=== PATIENT | female | born 1955 | race Caucasian/White ===

== ENCOUNTER 2019-08-30 05:47 | Emergency (ER) | payer MEDICARE, SELFPAY ==
--- NOTE | ~2019-08-30 | CT_ITS ---
EXAMINATION: CT brain wo con DATE: 08/30/2019 06:39 INDICATION: Head injury post fall TECHNIQUE: Computed tomography (CT) of the head was performed without intravenous contrast. Sagittal and coronal reconstructions were performed. The mA was adjusted according to patient size. Iterative reconstruction technique was employed. The dose-length product was 605.33 mGy-cm. COMPARISON: head CT dated 08/28/2018 FINDINGS: Small right frontal scalp contusion. No fracture. New small amount of subarachnoid hemorrhage along t he anterior right frontal lobe. No acute infarction. Symmetric prominence of the sulci and ventricles consistent with mild age-appropriate diffuse cerebral volume loss. Incidental cavum septum pellucidu m. No mass/mass effect. Mild mucoperiosteal thickening the bilateral ethmoid sinuses. The orbits and mastoid air cells are normal. Intracranial calcified cerebral atherosclerosis is noted. IMPRESSION: 1. Anterior right frontal subarachnoid hemorrhage. Reviewed, dictated and finalized at location A.
[2019-08-30 05:51] VITALS: BP 137/89; PULSE 81; RESP 18; TEMP 36.8; O2SAT 100
--- NOTE | 2019-08-30 06:07 | ED.FALL ---
HPI - Fall General Chief Complaint: Fall Stated Complaint: fall Time Seen by Provider: 08/30/19 06:02 History of Present Illness HPI Narrative: Patient is a 64-year-old female who presents the ER with a head injury. She reports last night she was out getting a walk-in when she tripped over a parking lot parking block. She fell and struck the back of her head. Denies loss of consciousness, she had been drinking alcohol. Denies being on blood thinner. She has no focal neuro deficit at this time. She went home and went to sleep for several hours, fall occurred at 2300. When she woke up she realized how much blood was covering her head and opted to come to the ER to be evaluated further. Unknown last tetanus vaccination. Reports frontal WOLFE and pain over the back of the head. Related Data Home Medications Medication Instructions Recorded Confirmed atorvastatin 08/30/19 metoprolol tartrate 08/30/19 Allergies Allergy/AdvReac Type Severity Reaction Status Date / Time poliomyelitis vaccine, live Allergy Unknown Rash Verified 08/28/18 17:17 oral Review of Systems Review of Systems: All systems reviewed & are unremarkable except as noted in HPI and below Constitutional: Constitutional: Denies chills and Denies fever(s) Eyes: Eyes: Denies change in vision ENT: Denies nasal congestion and Denies sore throat Neurologic: Denies syncope, Reports headache(s), Denies focal weakness and Denies numbness PMFSH Past Medical History Medical History (Updated 08/30/19 @ 07:36 by Wale Thapa MD) Coronary artery disease Hypertension Surgical History Surgical History (Updated 08/30/19 @ 06:23 by Wale Thapa MD) No pertinent past surgical history Social History Social History (Updated 08/30/19 @ 07:06 by Wale Thapa MD) Smoking status: Never smoker Alcohol use details: Regular EtOH Substance use: never Gender identity (if verbalized by the patient): Female Exam Narrative: Exam Narrative: GENERAL: Well-appearing, well-nourished, and in no acute distress. HEAD: Normocephalic, 1.5 cm laceration with hematoma over the left occipital region. EYES: PERRL, EOMI. ENT: Moist mucous membranes, normal external nose/ears. CHEST: Clear to auscultation. No respiratory distress. HEART: Regular rate and rhythm. Normal peripheral pulses. ABDOMEN: Soft, nontender, nondistended EXTREMITIES: Normal range of motion. No edema. SKIN: Warm, dry, no rash. NEURO: Alert and oriented x3. CN II-XII intact. Course Course Emergency Course: Accepted for transfer to [facility] ER by Dr. Reynolds. C-collar will be placed. Pt aware of dx and tx plan. Vital Signs Vital signs: Vital Signs Temperature 98.3 F 08/30/19 05:51 Pulse Rate 81 08/30/19 05:51 Respiratory Rate 18 08/30/19 05:51 Blood Pressure 137/89 08/30/19 05:51 Pulse Oximetry 100 08/30/19 05:51 Temperature 98.3 F 08/30/19 05:51 Pulse Rate 77 08/30/19 08:24 Respiratory Rate 16 08/30/19 08:24 Blood Pressure 123/76 08/30/19 08:24 Pulse Oximetry 98 08/30/19 08:24 Procedures Laceration Laceration 1: Date: 08/30/19 Time: 07:15 Site: scalp Size (cm): 1.5 Description: irregular Depth: simple, single layer Local Anesthetic: none Pre-repair: wound explored and irrigated extensively ====== Skin Level ====== Skin layer closed with: issa Number of sutures: 4 ====== Subcutaneous Layer ====== ====== Muscle Layer ====== ====== Tendon Layer ====== MDM - Fall Imaging Data Radiologist's impression: ITS Impressions Head CT 08/30/19 06:47 IMPRESSION: 1. Anterior right frontal subarachnoid hemorrhage. Critical Care Time Critical Care Time Critical Care Time: Yes Total Critical Care Time: 35 Discharge Plan Discharge Clinical Impression: Subarachnoid hemorrhage, Laceration of scalp Patient Dispositi
[2019-08-30] MEDS: TETANUS,DIPHTHERIA,AC PERTUSSIS ADULT (0.5 ML) BOOSTRIX IM (06:56)
[2019-08-30] MEDS: ACETAMINOPHEN 325 MG TABLET 650 MG PO (06:58)
[2019-08-30 07:07] VITALS: BP 126/83; PULSE 74; RESP 19; O2SAT 100
[2019-08-30 08:24] VITALS: BP 123/76; PULSE 77; RESP 16; O2SAT 98
--- NOTE | 2019-08-30 08:28 | PC.NURSE ---
EMS eta 0640
== END 2019-08-30 09:12 | disposition short-term general hospital (02) ==
PROVIDERS: Emergency Provider Emergency Medicine; PCP Family Medicine
DX: S06.6X0A Traumatic subarachnoid hemorrhage without loss of consciousness, initial encounter (principal); S01.01XA Laceration without foreign body of scalp, initial encounter; I25.10 Atherosclerotic heart disease of native coronary artery without angina pectoris; I10 Essential (primary) hypertension; W22.8XXA Striking against or struck by other objects, initial encounter; Y93.01 Activity, walking, marching and hiking; Z23 Encounter for immunization
CPT/HCPCS: 12001; 70450; 90471; 90715; 99285; A9270; L0140

== ENCOUNTER 2020-03-27 15:48 | Emergency (ER) | payer MEDICARE, SELFPAY ==
--- NOTE | ~2020-03-27 | XR_ITS ---
EXAMINATION: XR wrist RT min 3V EXAM DATE: 03/27/2020 16:05 INDICATION: Initial encounter following injury, with pain of the right wrist. TECHNIQUE: Right wrist frontal, frontal with ulnar deviation, oblique and lateral projections obtain ed and reviewed. There is no prior study for comparison. FINDINGS: Right wrist scapholunate joint space is maintained. There is acute closed posttraumatic fr acture of the right radial distal metaphysis with mild posterior angulation and displacement. Fractur e extends into the distal radial ulnar joint and probably also the radiocarpal joint. There is overly ing soft tissue swelling. IMPRESSION: 1. Acute right radial distal metaphyseal intra-articular fracture. Mild posterior angulation, displa cement. Reviewed, dictated and finalized at location A. T HEADMAN IMPRESSION: 1. Acute right radial distal metaphyseal intra-articular fracture. Mild vice president for philanthropy ior angulation, displacement.
--- NOTE | 2020-03-27 15:58 | ED.GENADULT ---
HPI - General Adult General Chief complaint: Extremity Injury, Upper Stated complaint: FALL/INJURED R WRIST/HAND Time Seen by Provider: 03/27/20 15:59 Source: patient Mode of arrival: ambulatory Limitations: no limitations History of Present Illness HPI narrative: 65-year-old female patient presents to the [facility] with complaints of right wrist pain. Patient states that she tripped over a box in her living room and fell Thursday. Patient states she had outstretched both arms to try and brace her fall and has been feeling pain to the right wrist since then. Patient states she has been taking ibuprofen for her pain. Patient does report some bruising to her lower arm. Denies any numbness or tingling to the fingertips at this time. Related Data Home Medications Medication Instructions Recorded Confirmed atorvastatin 08/30/19 metoprolol tartrate 08/30/19 Allergies Allergy/AdvReac Type Severity Reaction Status Date / Time poliomyelitis vaccine, live Allergy Unknown Rash Verified 08/28/18 17:17 oral Review of Systems Review of Systems: Narrative: CONSTITUTIONAL: Denies fever, chills, or sweats. EYES: Denies visual changes, redness, or discharge. ENT: Denies rhinorrhea, congestion, sore throat, or otalgia. CARDIOVASCULAR: Denies chest pain, palpitations, or edema. RESPIRATORY: Denies cough or dyspnea. GASTROINTESTINAL: Denies abdominal pain, nausea, vomiting, or diarrhea. GENITOURINARY: Denies dysuria or hematuria. SKIN: Denies rash or itching. MUSCULOSKELETAL: Denies back pain, joint pain, or myalgia. Positive right wrist pain NEUROLOGIC: Denies headache, numbness, or weakness. PSYCHIATRIC: Denies anxiety or depression. [facility]LY [facility] Past Medical History Medical History (Updated 03/27/20 @ 16:43 by SUNDAY Harkins) Coronary artery disease Hypercholesteremia Hypertension Marijuana use Multiple fractures of ribs of both sides Postmenopausal Surgical History Surgical History No pertinent past surgical history Social History Social History (Updated 03/27/20 @ 16:00 by SUNDAY Harkins) Smoking status: Never smoker Alcohol intake: current Alcohol use details: Bottle 1/day Substance use: current Substance use type: marijuana Gender identity (if verbalized by the patient): Female Comments At the time of my signature I agree with nursing past medical history, surgical, social, and family history. There is no relevant family history pertinent to the presenting complaint. Exam Narrative: Exam Narrative: GENERAL: Well-appearing, well-nourished, and in no acute distress. HEAD: Normocephalic, atraumatic. EYES: PERRLA and EOMI. ENT: Nares clear, no rhinorrhea or epistaxis. Mucous membranes moist. NECK: Supple. No lymphadenopathy CHEST: Clear to auscultation. No respiratory distress. HEART: Regular rate and rhythm. No murmur heard. Normal peripheral pulses. ABDOMEN: Soft, nontender, nondistended, normal active bowel sounds. EXTREMITIES: The R wrist is with obvious asymmetry and deformity when compared to the L wrist. Patient does have some bruising on the anterior aspect of the forearm, no open wounds, swelling. No overlying erythema or warmth. No bony crepitus or focal area of TTP. No scaphoid fullness or tenderness to direct palpation or axial load. Pain with flex/unlimited extension, pain with ulnar/radial deviation. Motor/sensory function of ulnar, radial, median nerves intact. Ulnar and radial pulses intact. SKIN: Warm, dry, no rash. NEURO: No focal deficits. Alert and oriented x3. Course Reevaluation(s) Reevaluation #1: Reevaluated patient after x-ray resulted. Discussed with her that her x-ray does show that she has a right wrist fracture. Discussed with patient that we are going to need to refer her to the orthopedic surgeon on-call today who is Dr. Sue for further evaluation and treatment. Attempted to call his office today h
[2020-03-27 16:01] VITALS: BP 126/77; PULSE 78; RESP 16; TEMP 35.9; O2SAT 98
--- NOTE | 2020-03-27 17:12 | PC.NURSE ---
Volar OCL applied per instructions. Rings removed from right hand and place in patients left pant pocket. Sling applied.
== END 2020-03-27 17:15 | disposition home or self-care (01) ==
PROVIDERS: Emergency Provider Nurse Practitioner Family; PCP Family Medicine
DX: S52.501A Unspecified fracture of the lower end of right radius, initial encounter for closed fracture (principal); W18.09XA Striking against other object with subsequent fall, initial encounter; I25.10 Atherosclerotic heart disease of native coronary artery without angina pectoris; E78.00 Pure hypercholesterolemia, unspecified; I10 Essential (primary) hypertension
CPT/HCPCS: 29125; 73110; 99214; A4565; G0463

== ENCOUNTER 2022-06-08 00:10 | Inpatient (IN) | payer MEDICARE, SELFPAY ==
[2022-06-08] VITALS (8 sets, daily range): BP systolic 112–136; BP diastolic 69–93; PULSE 66–94; RESP 11–16; TEMP 36.9–37.2; O2SAT 97–100; BMI 14.8
--- NOTE | ~2022-06-08 | CT_ITS ---
EXAMINATION: CT brain wo con DATE: 06/08/2022 00:54 INDICATION: Patient found down. EtOH. TECHNIQUE: Computed tomography (CT) of the head was performed without intravenous contrast. The dose- length product was 605.33 mGy-cm. Automated exposure control and iterative reconstruction technique w ere employed. COMPARISON: CT dated 08/30/2019 FINDINGS: Generalized atrophy. There are scattered mild periventricular and subcortical white matter changes, most likely related to small vessel ischemic disease (microangiopathy). There is intracrania l atherosclerosis. No ventriculomegaly or midline shift. Paranasal sinuses and mastoids are pneumatiz ed. No depressed skull fractures. IMPRESSION: 1. No acute intracranial abnormality. Reviewed, dictated and finalized at location A. M CONDITIONER OPERATOR
--- NOTE | ~2022-06-08 | CT_ITS ---
EXAMINATION: CT cervical spine wo con DATE: 06/08/2022 00:55 INDICATION: Patient found down. EtOH TECHNIQUE: Computed tomography (CT) of the cervical spine was performed without intravenous contrast. The dose-length product was 90 mGy-cm. Automated exposure control and iterative reconstruction techn ique were employed. COMPARISON: None FINDINGS: Craniovertebral junction is normal. There is disc narrowing at C5-6 and C6-7. There is dege nerative anterolisthesis at C4-5 and retrolisthesis at C5-6. There is moderate multilevel uncinate an d facet hypertrophy. Mild levocurvature of the cervical spine. Odontoid process is normal. No evidenc e for perched facet. Lung apices are normal. IMPRESSION: 1. No acute abnormality of the cervical spine. 2: Moderate cervical spondylosis. Reviewed, dictated and finalized at location A. OLOGY INTERVENTIONAL PHYSICIAN
--- NOTE | 2022-06-08 00:18 | ECG_ITS ---
Measurements Intervals [place] Rate: 80 P: 74 WV: 133 QRS: 47 QRSD: 81 T: 63 QT: 388 QTc: 450 Interpretive Statements SINUS RHYTHM BASELINE ARTIFACT- I, II, III, AVR, AVL, AVF, V1-V6 NORMAL ECG NO PREVIOUS ECG AVAILABLE FOR COMPARISON Electronically Signed On 06-08-2022 7:42:19 DRIVING INSTRUCTOR by Ashwin Woodruff D.O.
--- NOTE | 2022-06-08 00:19 | ED.GENADULT ---
HPI - General Adult General Chief complaint: Altered Mental Status Stated complaint: altered loc Time Seen by Provider: 06/08/22 00:17 History of Present Illness HPI narrative: This is a 67-year-old female with history of chronic alcohol use presenting ED after being found down in the bathroom of a bar. Bar called EMS. The patient is unable to answer questions appropriately. She smells of alcohol and urine. Patient cannot provide any meaningful information to get her workup. No evidence of trauma. Related Data Home Medications Medication Instructions Recorded Confirmed atorvastatin 20 mg tablet 08/30/19 05/17/20 metoprolol tartrate 25 mg tablet 08/30/19 05/17/20 Allergies Allergy/AdvReac Type Severity Reaction Status Date / Time poliomyelitis vaccine, live Allergy Unknown Rash Verified 08/28/18 17:17 oral PMFSH Past Medical History Medical History BMI less than 19,adult Coronary artery disease Hypercholesteremia Hypertension Marijuana use Multiple fractures of ribs of both sides Postmenopausal Surgical History Surgical History No pertinent past surgical history Family History Family History Other Cancer Heart disease Hypertension Social History Social History Smoking status: Never smoker Alcohol intake: current Alcohol use details: Bottle 1/day Substance use: current Substance use type: marijuana Gender identity (if verbalized by the patient): Female Exam Narrative: APPEARANCE: patient is emaciated, she is malodorous and smells of alcohol urine. She is A&O x1 Head: atraumatic. EYES: EOMI, no nystagmus NOSE: Atraumatic NECK: Trachea midline RESPIRATORY: No increased rate of breathing CARDIOVASCULAR: RRR, no peripheral edema ABDOMINAL: Non-distended soft tender no guarding or rebound MUSCULOSKELETAl: No obvious deformities, head to toe trauma exam did not reveal any areas of tenderness, pain on active passive range of motion of any extremity. NEURO: Alert. Cranial nerves 2-12 grossly intact. Patient is moving 4 4 extremities. Patient is alert but grossly misconstrued ring my commands. When I asked her to touch her nose then touch my finger she touches her nose and then a different part of her face. When I asked her to do heel to gaines and showed her what to do she brought her gaines up to her hand and ran her hand along her gaines. extraocular eye movements are intact with no cranial nerve policies or nystagmus. SKIN:: Warm, dry. Normal color PSYCHIATRIC: Normal affect Course Vital Signs Vital signs: Vital Signs Pulse Rate 88 06/08/22 00:34 Respiratory Rate 11 L 06/08/22 00:34 Blood Pressure 136/93 H 06/08/22 00:34 Pulse Oximetry 100 06/08/22 00:34 Oxygen Delivery Room Air 06/08/22 00:34 Pulse Rate 88 06/08/22 00:34 Respiratory Rate 11 L 06/08/22 00:34 Blood Pressure 136/93 H 06/08/22 00:34 Pulse Oximetry 100 06/08/22 00:34 Oxygen Delivery Room Air 06/08/22 00:34 Medical Decision Making MDM Narrative Medical decision making narrative: -Presentation: 67-year-old female found down presenting with confusion,smells of alcohol and urine. -DDX includes but is not limited to: alcohol intoxication, acute intracranial hemorrhage, urinary tract infection, korsakoff/wernick encephalopathy -Co-morbidities complicating care: chronic alcohol use -Social determinants of health: patient states she lives in house but cannot tell me if it is hers are a snf. -External Chart Review: None -Hx from independent Sources: EMS -Discussion of Management/Consultants: none -Independent interpretation of studies: CT head was negative for acute intracranial injury. CT C-spine was negative for acute fractu
[2022-06-08 00:44] LABS: Appearance Urine Clear (Clear); Bilirubin Urine 1+ (Negative); Blood Urine Trace-intact (Negative); Color Urine Yellow (Yellow); Glucose Urine UA Negative (Negative); Ketones Urine Trace mg/dL (Negative); Leukocyte Esterase Ur Negative LEU/UL (Negative); Nitrate Urine Negative (Negative); Protein Urine 1+ mg/dL (Negative); Specific Grav Ur 1.025 (1.001-1.035); pH Urine 5.5 (5.0-9.0)
[2022-06-08 00:53] LABS: Mucus Urine Few /lpf; RBC Urine 0-2 /hpf (0-2); Squamous Epithelial Cell Urine Rare /hpf (Few); WBC Urine 0-3 /hpf
[2022-06-08 00:57] LABS: Add Urine Microscopic? YES
[2022-06-08 00:58] LABS: Alanine Aminotransferase 34 U/L (6-35); Albumin Level 4.2 g/dL (3.5-5.1); Alkaline Phosphatase 47 U/L (38-126); Anion Gap 12 mmol/L (8-16); Aspartate Amino Transferase 87 U/L (14-36); Bilirubin,Total 0.6 mg/dL (0.2-1.3); Blood Urea Nitrogen 24 mg/dL (7-17); Calcium 9.4 mg/dL (8.4-10.2); Carbon Dioxide 21 mmol/L (22-30); Chloride 101 mmol/L (98-107); Estimated Glomerular Filt Rate > 60; Glucose 92 mg/dL (65-110); Lipase 218 U/L (23-300); Magnesium 1.9 mg/dL (1.6-2.3); Sodium 134 mmol/L (137-145)
[2022-06-08] MEDS: THIAMINE HCL INJ 100 MG, FOLIC ACID INJ 1 MG, MULTIVITAMINS-12 INJ VIAL 1 5 ML, MULTIVI... IV CONT (00:58)
[2022-06-08 01:16] LABS: Ethanol 52 mg/dL (<10)
[2022-06-08 01:17] LABS: Basophils Absolute Auto 0.1 K/mm3 (0.0-0.1); Basophils Percent Auto 0.8 % (0.2-1.2); Eosinophils Absolute Auto 0.1 K/mm3 (0-0.3); Eosinophils Percent Auto 0.8 % (0-4.4); Immature Granulocyte Absolute 0.03 K/mm3 (0.00-0.031); Immature Granulocyte Percent A 0.5 % (0-0.5); Lymphocytes Absolute Auto 1.87 K/mm3 (0.9-3.2); Lymphocytes Percent Auto 30.4 % (18.3-44.2); Mean Corpuscular HGB Conc 32.4 g/dl (32-36); Mean Corpuscular Hemoglobin 32.4 pg (26-34); Mean Platelet Volume 10.4 fl (7.4-10.4); Monocytes Percent Auto 15.9 % (2.6-8.5); Neutrophils Absolute Auto 3.2 K/mm3 (1.3-6.7); Neutrophils Percent Auto 51.6 % (45.5-73.1); Platelet Count Result 273 k/mm3 (150-375); Red Cell Distribution Width 11.5 % (11.5-14.5); White Blood Count 6.2 K/mm3 (4.5-10.0)
[2022-06-08 02:00] LABS: INR 1.1
[2022-06-08 02:01] LABS: Partial Thromboplastin Time 25.5 SECONDS (22.3-36.8)
[2022-06-08 02:23] LABS: Amphetamine Screen Urine Negative (Negative); Barbiturate Screen Urine Negative (Negative); Benzodiazepines Screen Urine Negative (Negative); Cannabinoid Screen Urine Negative (Negative); Cocaine Screen Urine Negative (Negative); Methadone Screen Urine Negative (Negative); Opiate Screen Urine Negative (Negative); Phencyclidine Screen Urine Negative (Negative)
--- NOTE | 2022-06-08 04:31 | PM.IMHP ---
H&P: HPI History of Present Illness Date/Time: 06/08/22 04:31 Chief Complaint: Altered mental status Narrative: This is a 67-year-old female with past medical history significant for alcohol dependence, patient was found down at a bathroom of a local bar EMS was called and patient was brought to the emergency room. At the time of my visit patient has [place] collar on unable to give any history she is able to make eye contact and say simple answers likely yes or no. Preliminary workup was significant for a negative urine tox for drug screening, cervical spine CT did not show acute fractures, serology panel for influenza type A type B COVID and RSV are still pending. Patient is been placed in observation for further evaluation management and treatment. Review of Systems Review of Systems: ROS unobtainable: Yes unobtainable due to medical condition ([place] collar on) PMFSH Past Medical History Medical History BMI less than 19,adult Coronary artery disease Hypercholesteremia Hypertension Marijuana use Multiple fractures of ribs of both sides Postmenopausal Surgical History Surgical History No pertinent past surgical history Family History Family History Other Cancer Heart disease Hypertension Social History Social History Smoking status: Never smoker Alcohol intake: current Alcohol use details: Bottle 1/day Substance use: current Substance use type: marijuana Gender identity (if verbalized by the patient): Female Meds Home Medications and Allergies Home Medications Medication Instructions Recorded Confirmed Type atorvastatin 20 mg tablet 08/30/19 05/17/20 History metoprolol tartrate 25 mg tablet 08/30/19 05/17/20 History Allergies Allergy/AdvReac Type Severity Reaction Status Date / Time poliomyelitis vaccine, live Allergy Unknown Rash Verified 08/28/18 17:17 oral Vital Signs Vital Signs - 24 hr 06/08/22 00:34 06/08/22 03:15 06/08/22 03:17 Pulse Rate 88 77 78 Respiratory Rate 11 L 16 16 Blood Pressure 136/93 H 127/75 116/71 Pulse Oximetry 100 97 98 Oxygen Delivery Room Air Exam Narrative: Patient is laying in a stretcher Const: General: comfortable, no acute distress, well developed, alert, awake and average body habitus Nutritional Appearance: underweight Orientation/consciousness: oriented to person HENMT: Head: normal to inspection, normocephalic and atraumatic Ears: hearing grossly normal bilaterally Face/Nose/Sinus: normal facial exam Face and sinus: normal facial exam Eyes: General: appearance normal, both eyes and all related structures Pupils: Equal, round and reactive pupils present EOM: EOMs intact bilaterally Neck: Neck: full ROM, no lymphadenopathy and no JVD Thyroid: thyroid normal Lymphatic: no lymphadenopathy noted Resp: Effort & Inspection: normal respiratory effort and able to speak in complete sentences Auscultation: clear to auscultation bilaterally Cardio: Jugular venous distension: no JVD Rate: regular rate Rhythm: regular rhythm Heart sounds: S1 normal heart sound present and S2 normal heart sound present GI: Inspection: normal to inspection GI Palp: Yes Soft to palpation and Yes No hepatosplenomegaly present : General: Yes deferred Skin: Rashes: no rashes Wounds: no wounds Neuro: General: patient oriented x3 and CN's II-XI intact bilaterally Cranial nerves: Yes CN's II-XII intact bilaterally and Yes Equal, round and reactive pupils present Cognition (Neuro): normal cognition Speech: normal speech Gait exam (Neuro): Unable to assess gait Motor exam (neuro): 5/5 motor strength present throughout Extrem: General: normal to inspection, full ROM, no joint enlargement and no pedal edema Other: Excoriation
[2022-06-08 05:13] LABS: Influenza A QL RT-PCR Negative (Negative); Influenza B QL RT-PCR Negative (Negative); RSV RNA, RT-PCR Negative (Negative); SARS-CoV-2 RNA PCR Negative
[2022-06-08 07:59] LABS: Glucose Point of Care 121 mg/dl (65-105)
[2022-06-08] MEDS: THIAMINE HCL 200 MG/2 ML VIAL 100 MG IV PUSH (08:50)
[2022-06-08] MEDS: LACTATED RINGERS 1,000 ML 125 ML IV CONT ×3 (12:55→22:36)
--- NOTE | 2022-06-08 19:53 | PC.NURSE ---
Dr. Cline made aware of patient scoring 12 on CIWA protocol with no prn or scheduled medications. Sitter remains at bedside at this time. Awaiting further orders.
[2022-06-08] MEDS: chlordiazePOXIDE (*CRX) 25 MG CAPSULE 50 MG PO (20:33)
[2022-06-08] MEDS: ONDANSETRON INJ 4 MG/2 ML VIAL IV PUSH (20:33)
[2022-06-08] MEDS: LORazepam INJ (*CRX) 2 MG/ML VIAL IV PUSH (22:36)
[2022-06-09] VITALS (7 sets, daily range): BP systolic 118–139; BP diastolic 66–92; PULSE 56–85; RESP 16–18; TEMP 36.6–37; O2SAT 98–100; BMI 14.8
[2022-06-09 01:11] LABS: Glucose Point of Care 87 mg/dl (65-105)
[2022-06-09] MEDS: LACTATED RINGERS 1,000 ML 125 ML IV CONT ×3 (04:52→23:00)
[2022-06-09 05:47] LABS: Glucose Point of Care 84 mg/dl (65-105)
[2022-06-09] MEDS: THIAMINE HCL 200 MG/2 ML VIAL 100 MG IV PUSH (08:38)
--- NOTE | 2022-06-09 11:15 | PM.IMPN ---
Progress Note: A&P Assessment and Plan (1) Altered mental status: Code(s): R41.82 - Altered mental status, unspecified Status: Acute Assessment and Plan: Admit to regular medical floor Patient is now awake and alert [place] collar may come off were and official reading of cervical spine is available Chemistry panel reviewed CBC reviewed Supportive care (2) Alcohol dependence: Code(s): F10.20 - Alcohol dependence, uncomplicated Status: Acute Assessment and Plan: Patient is receiving banana bag CIWA protocol as needed Subjective Date/time seen: 06/09/22 11:15 no new complaints Exam Narrative: Patient is laying in a stretcher Const: General: comfortable, no acute distress, well developed, alert, awake, average body habitus and underweight Nutritional Appearance: average body habitus and underweight Orientation/consciousness: oriented to person and patient oriented x3 HENMT: Head: normal to inspection, normocephalic and atraumatic Ears: hearing grossly normal bilaterally Face/Nose/Sinus: normal facial exam Face and sinus: normal facial exam Eyes: General: appearance normal, both eyes and all related structures Pupils: Equal, round and reactive pupils present EOM: EOMs intact bilaterally Neck: Neck: full ROM, no lymphadenopathy and no JVD Thyroid: thyroid normal Lymphatic: no lymphadenopathy noted Resp: Effort & Inspection: normal respiratory effort and able to speak in complete sentences Auscultation: clear to auscultation bilaterally Cardio: Jugular venous distension: no JVD Rate: regular rate Rhythm: regular rhythm Heart sounds: S1 normal heart sound present and S2 normal heart sound present GI: Inspection: normal to inspection : General: Yes deferred Skin: Rashes: no rashes Wounds: no wounds Neuro: General: oriented to person, patient oriented x3, CN's II-XI intact bilaterally and Unable to assess gait Cranial nerves: Yes CN's II-XII intact bilaterally and Yes Equal, round and reactive pupils present Cognition (Neuro): normal cognition Speech: normal speech Gait exam (Neuro): Unable to assess gait Motor exam (neuro): 5/5 motor strength present throughout Extrem: General: normal to inspection, full ROM, no joint enlargement and no pedal edema Other: Excoriations present in bilateral lower extremities Objective Data Vital Signs Vital Signs: Vital Signs - 24 hr 06/08/22 14:10 06/08/22 22:00 06/08/22 20:00 Temperature 98.4 F 99.0 F Pulse Rate 82 66 Pulse Rate [Left Radial] 66 Respiratory Rate 16 16 Blood Pressure 120/80 124/84 Pulse Oximetry 100 100 Oxygen Delivery 06/08/22 20:00 06/09/22 00:00 06/09/22 05:31 Temperature 97.9 F Pulse Rate 56 L Pulse Rate [Left Radial] 72 Respiratory Rate 16 Blood Pressure 124/84 139/92 H Pulse Oximetry 99 Oxygen Delivery Room Air Intake/Output Intake/Output: Intake & Output 06/06/22 06/07/22 06/08/22 06/09/22 23:59 23:59 23:59 23:59 Intake Total 2240 1000 Balance 2240 1000 Meds/Results Medications: Active Medications Generic Name Dose Route Start Last Admin Trade Name Freq PRN Reason Stop Dose Admin Chlordiazepoxide HCl 50 mg 06/08/22 19:53 06/08/22 20:33 Chlordiazepoxide (*Crx) 25 Mg Capsule PO 50 mg Q6H PRN Administration Withdrawal Lactated Ringer's 1,000 mls @ 125 mls/hr 06/08/22 02:30 06/09/22 04:52 Lr - Lactated Ringers Iv IV CONT 125 mls/hr .Q8H CURTIS Administration Lorazepam 2 mg 06/08/22 19:53 06/08/22 22:36 Lorazepam Inj (*Crx) 2 Mg/Ml Vial IV PUSH 2 mg Q4H PRN Administration Withdrawal Ondansetron HCl 4 mg 06/08/22 19:53 06/08/22 20:33 Ondansetron Inj 4 Mg/2 Ml Vial IV PUSH 4 mg Q6H PRN Administration Nausea And Vomiting Thiamine HCl 100 mg 06/08/22 09:00 06/09/22 08:38 Thiamine Hcl 200 Mg/2 Ml Vial IV PUSH 100 mg QAM CURTIS Administration Radiology Results: ITS Impressions
[2022-06-09 11:25] LABS: Glucose Point of Care 66 mg/dl (65-105)
[2022-06-09 18:22] LABS: Glucose Point of Care 101 mg/dl (65-105)
[2022-06-10 00:20] LABS: Glucose Point of Care 121 mg/dl (65-105)
[2022-06-10 05:15] VITALS: BP 115/62; PULSE 63; RESP 16; TEMP 36.7; O2SAT 99
[2022-06-10 05:40] LABS: Glucose Point of Care 83 mg/dl (65-105)
[2022-06-10] MEDS: LACTATED RINGERS 1,000 ML 125 ML IV CONT ×3 (10:00→21:30)
[2022-06-10] MEDS: THIAMINE HCL 200 MG/2 ML VIAL 100 MG IV PUSH (10:52)
[2022-06-10 10:53] VITALS: O2SAT 97
--- NOTE | 2022-06-10 11:04 | PM.IMPN ---
Progress Note: A&P Assessment and Plan (1) Altered mental status: Code(s): R41.82 - Altered mental status, unspecified Status: Acute Assessment and Plan: Patient is much more alert today. Feeling better overall. No withdrawal symptoms. PTOT evaluation. Question placement or discharged home. (2) Alcohol dependence: Code(s): F10.20 - Alcohol dependence, uncomplicated Status: Acute Assessment and Plan: Patient is receiving banana bag CIWA protocol as needed Subjective Date/time seen: 06/10/22 11:04 Patient had a fall yesterday. No injuries. Awaiting PT and OT evaluation today. Otherwise with her alcohol withdrawal she is doing much better. Exam Narrative: Patient is laying in a stretcher Const: General: comfortable, no acute distress, well developed, alert, awake, average body habitus and underweight Nutritional Appearance: average body habitus and underweight Orientation/consciousness: oriented to person and patient oriented x3 HENMT: Head: normal to inspection, normocephalic and atraumatic Ears: hearing grossly normal bilaterally Face/Nose/Sinus: normal facial exam Face and sinus: normal facial exam Eyes: General: appearance normal, both eyes and all related structures Pupils: Equal, round and reactive pupils present EOM: EOMs intact bilaterally Neck: Neck: full ROM, no lymphadenopathy and no JVD Thyroid: thyroid normal Lymphatic: no lymphadenopathy noted Resp: Effort & Inspection: normal respiratory effort and able to speak in complete sentences Auscultation: clear to auscultation bilaterally Cardio: Jugular venous distension: no JVD Rate: regular rate Rhythm: regular rhythm Heart sounds: S1 normal heart sound present and S2 normal heart sound present GI: Inspection: normal to inspection : General: Yes deferred Skin: Rashes: no rashes Wounds: no wounds Neuro: General: oriented to person, patient oriented x3, CN's II-XI intact bilaterally and Unable to assess gait Cranial nerves: Yes CN's II-XII intact bilaterally and Yes Equal, round and reactive pupils present Cognition (Neuro): normal cognition Speech: normal speech Gait exam (Neuro): Unable to assess gait Motor exam (neuro): 5/5 motor strength present throughout Extrem: General: normal to inspection, full ROM, no joint enlargement and no pedal edema Other: Excoriations present in bilateral lower extremities Objective Data Vital Signs Vital Signs: Vital Signs - 24 hr 06/09/22 11:10 06/09/22 11:10 06/09/22 11:59 Temperature Pulse Rate 77 Pulse Rate [Left Radial] 77 Respiratory Rate 18 Blood Pressure 127/66 127/66 Pulse Oximetry 100 Oxygen Delivery Room Air 06/09/22 14:00 06/09/22 22:26 06/09/22 21:20 Temperature 97.8 F 98.6 F Pulse Rate 59 L 85 Pulse Rate [Left Radial] 77 Respiratory Rate 18 16 Blood Pressure 118/76 126/81 126/81 Pulse Oximetry 100 98 Oxygen Delivery 06/09/22 21:20 06/10/22 05:15 06/10/22 10:53 Temperature 98.1 F Pulse Rate 63 Pulse Rate [Left Radial] Respiratory Rate 16 Blood Pressure 115/62 Pulse Oximetry 99 97 Oxygen Delivery Room Air Room Air Intake/Output Intake/Output: Intake & Output 06/07/22 06/08/22 06/09/22 06/10/22 23:59 23:59 23:59 23:59 Intake Total 2240 3460 1000 Balance 2240 3460 1000 Meds/Results Medications: Active Medications Generic Name Dose Route Start Last Admin Trade Name Freq PRN Reason Stop Dose Admin Chlordiazepoxide HCl 50 mg 06/08/22 19:53 06/08/22 20:33 Chlordiazepoxide (*Crx) 25 Mg Capsule PO 50 mg Q6H PRN Administration Withdrawal Lactated Ringer's 1,000 mls @ 125 mls/hr 06/08/22 02:30 06/10/22 10:00 Lr - Lactated Ringers Iv IV CONT 125 mls/hr .Q8H CURTIS Administration Lorazepam 2 mg 06/08/22 19:53 06/08/22 22:36 Lorazepam Inj (*Crx) 2 Mg/Ml Vial IV PUSH 2 mg Q4H PRN Administration Withdrawal Ondansetron HCl 4 mg 06/08/22 1
[2022-06-10 11:26] LABS: Glucose Point of Care 93 mg/dl (65-105)
[2022-06-10 14:00] VITALS: BP 143/82; PULSE 68; RESP 16; TEMP 36.6; O2SAT 99
[2022-06-10] MEDS: chlordiazePOXIDE (*CRX) 25 MG CAPSULE 50 MG PO (16:28)
[2022-06-10 17:43] LABS: Glucose Point of Care 107 mg/dl (65-105)
[2022-06-10 20:32] VITALS: PULSE 68
[2022-06-10 21:23] VITALS: BP 154/92; PULSE 63; RESP 16; TEMP 36.4; O2SAT 100
[2022-06-11] VITALS: PULSE 68
[2022-06-11 01:02] LABS: Glucose Point of Care 104 mg/dl (65-105)
[2022-06-11 04:00] VITALS: PULSE 70
[2022-06-11] MEDS: LACTATED RINGERS 1,000 ML 125 ML IV CONT ×2 (04:12→14:55)
[2022-06-11 05:49] VITALS: BP 143/84; PULSE 94; RESP 16; TEMP 37.1; O2SAT 99
[2022-06-11 06:19] LABS: Glucose Point of Care 105 mg/dl (65-105)
[2022-06-11 08:00] VITALS: PULSE 69
[2022-06-11 08:51] LABS: Glucose Point of Care 76 mg/dl (65-105)
[2022-06-11] MEDS: THIAMINE HCL 200 MG/2 ML VIAL 100 MG IV PUSH (11:02)
[2022-06-11 11:23] LABS: Glucose Point of Care 107 mg/dl (65-105)
--- NOTE | 2022-06-11 14:45 | PM.DS ---
DS: Admitting Diagnosis Discharge Date 06/11/2022 Admitting Diagnosis acute altered mental status DS: Discharge Diagnosis Discharge Diagnosis (1) Altered mental status: Qualifiers: Altered mental status type: unspecified Qualified Code(s): R41.82 - Altered mental status, unspecified Code(s): R41.82 - Altered mental status, unspecified Status: Acute Assessment and Plan: Patient is much more alert today. Feeling better overall. No withdrawal symptoms. PTOT evaluation. Question placement or discharged home. (2) Alcohol dependence: Code(s): F10.20 - Alcohol dependence, uncomplicated Status: Acute Assessment and Plan: Patient is receiving banana bag CIWA protocol as needed DS: Summary Hospital Course Reason for hospitalization: Chief Complaint: Altered mental status Narrative: This is a 67-year-old female with past medical history significant for alcohol dependence, patient was found down at a bathroom of a local bar EMS was called and patient was brought to the emergency room.? At the time of my visit patient has [place] collar on unable to give any history she is able to make eye contact and say simple answers likely yes or no.? Preliminary workup was significant for a negative urine tox for drug screening, cervical spine CT did not show acute fractures, serology panel for influenza type A type B COVID and RSV are still pending.? Patient is been placed in observation for further evaluation management and treatment. Hospital Course: today patient is more clinically stable her CIWA protocol extending down, will discharge the patient today with instruction to avoid alcohol Time Spent with Patient Time attestation: Total time spent providing and/or coordinating discharge services: Exam Narrative: appears chronically ill and under nourished Patient is comfortable, NAD HEENT: eyes are clear and none icteric LUNGS: normal respiratory effort ABD: not distended Lower extremities: no edema SKIN: nonjaundiced Neuro: grossly intact. DS: Data Data Completed and Pending Labs on day of discharge: Labs from last 24 hours 06/11/22 06/11/22 06/11/22 11:19 08:03 06:09 POC Capillary Glucose 107 H 76 105 06/11/22 06/10/22 00:58 17:40 POC Capillary Glucose 104 107 H Discharge Plan Discharge Attending physician on discharge: Meseret Almaraz Consulting providers: Dixon Serra ; Espinoza Nick ; Ashwin Woodruff Discharging Clinician: Meseret Almaraz Patient Disposition: Home, Self-Care Activity: as tolerated Diet: heart healthy Discharge Instructions: Patient is instructed to avoid alcohol, and follow up with her primary care provider as soon as possible, patient is instructed if any symptoms get worsen to go to nearest ER. Patient Instructions: Antibiotic Form, Alcohol Withdrawal (DC), Encephalopathy (GEN) Stand Alone Forms: General Discharge Information Follow-up/Referrals: Antelmo,Yessi Gomez MD [Primary Care Provider] - Discharge Medications: New prenat.vits,brandy,[id number] Tablet 1 tablet PO DAILY Qty: 90 0RF Continued atorvastatin 20 mg tablet 20 mg PO DAILY metoprolol tartrate 25 mg tablet 12.5 mg PO BID Date of admission: 06/08/22 02:26 Primary Care Provider: EnrriqueYessi Admitting Provider: Keya Cline V. Attending physician on admission: Meseret Almaraz Condition: Stable
== END 2022-06-11 15:55 | disposition home or self-care (01) | DRG 897 ==
LOC: ANHED 02:22 → ANH3MEDSUR 03:01
PROVIDERS: Admitting Provider Internal Medicine; Emergency Provider Emergency Medicine; PCP Family Medicine; Visit Provider Family Medicine
DX: F10.229 Alcohol dependence with intoxication, unspecified (principal); Z68.1 Body mass index [BMI] 19.9 or less, adult; R64 Cachexia; Y90.2 Blood alcohol level of 40-59 mg/100 ml; E78.00 Pure hypercholesterolemia, unspecified; F12.90 Cannabis use, unspecified, uncomplicated; I10 Essential (primary) hypertension; I25.10 Atherosclerotic heart disease of native coronary artery without angina pectoris; R41.82 Altered mental status, unspecified; R63.6 Underweight; Z20.822 Contact with and (suspected) exposure to COVID-19
CPT/HCPCS: 36415; 51701; 70450; 72125; 80053; 80307; 81001; 82948; 83690; 83735; 85025; 85610; 85730; 87637; 93005; 96374; 97161; 97165; 99285; A9270; J2060; J2405; J3411; J3475; J7120; J7121

== ENCOUNTER 2022-06-14 20:50 | Observation (INO) | payer MEDICARE, SELFPAY ==
--- NOTE | ~2022-06-14 | CT_ITS ---
EXAMINATION: CT brain wo con INDICATION: Headache COMPARISON: 06/08/2022 TECHNIQUE: Standard unenhanced head CT. The dose-length product (DLP) was 605.33 mGy-cm. The mA was a djusted according to patient size. Iterative reconstruction technique was employed. FINDINGS: There is no acute intraparenchymal hemorrhage. No evidence of mass lesion. No evidence of a cute infarction. There is moderate periventricular and subcortical hypodensity probably related to sm all vessel ischemic disease. There is moderate prominence of the sulci and ventricles related to cere bral atrophy. Intracranial calcified cerebral atherosclerosis is noted. There are no extra-axial ciara ections. There is no mass effect or midline shift. The orbits and soft tissues are unremarkable. The visualized sinuses and mastoid air cells are well aerated. IMPRESSION: 1. No acute intracranial abnormality. 2. Age related findings. Reviewed, dictated and finalized at location A. MANAGER
--- NOTE | 2022-06-14 20:57 | ECG_ITS ---
Measurements Intervals [place] Rate: 80 P: 78 MA: 136 QRS: 66 QRSD: 79 T: 75 QT: 386 QTc: 448 Interpretive Statements SINUS RHYTHM POSSIBLE LEFT ATRIAL ENLARGEMENT [-0.1mV P WAVE IN V1/V2] ABNORMAL ECG COMPARED TO ECG 06/08/2022 01:23:05 NO SIGNIFICANT CHANGES Electronically Signed On 06-15-2022 11:29:21 SALES ORDER CLERK by Misael Vital M.D.
[2022-06-14 21:00] VITALS: BP 132/76; PULSE 92; RESP 18; TEMP 36.6; O2SAT 97
--- NOTE | 2022-06-14 21:11 | ED.GENADULT ---
HPI - General Adult General Chief complaint: Unspecified Stated complaint: ?failure to thrive Time Seen by Provider: 06/14/22 20:51 History of Present Illness HPI narrative: 67-year-old female presenting to the emergency department for evaluation for confusion and failure to thrive. Patient was recently admitted for alcoholic intoxication and encephalopathy. Patient was discharged on 06/11. Today patient was found wandering around the neighborhood looking for water for her cats. Police escorted the patient back to her house and found that the patient had no heat and no running water. EMS was called and the patient was brought to the emergency department for evaluation. Patient states that she did start drinking immediately after discharge from the hospital but had no alcohol today. Patient reports that she drinks wine. Patient denies any other pain or complaints. Patient does have a history of alcohol dependence Related Data Home Medications Medication Instructions Recorded Confirmed atorvastatin 20 mg tablet 20 mg PO DAILY 08/30/19 06/15/22 metoprolol tartrate 25 mg tablet 12.5 mg PO BID 08/30/19 06/15/22 Allergies Allergy/AdvReac Type Severity Reaction Status Date / Time poliomyelitis vaccine, live Allergy Unknown Rash Verified 08/28/18 17:17 oral Review of Systems Review of Systems: CONSTITUTIONAL: Denies fever, chills, or sweats. EYES: Denies visual changes, redness, or discharge. ENT: Denies rhinorrhea, congestion, sore throat, or otalgia. CARDIOVASCULAR: Denies chest pain, palpitations, or edema. RESPIRATORY: Denies cough or dyspnea. GASTROINTESTINAL: Denies abdominal pain, nausea, vomiting, or diarrhea. GENITOURINARY: Denies dysuria or hematuria. SKIN: Denies rash or itching. MUSCULOSKELETAL: Denies back pain, joint pain, or myalgia. NEUROLOGIC: Denies headache, numbness, or weakness. [facility] Past Medical History Medical History BMI less than 19,adult Coronary artery disease Hypercholesteremia Hypertension Marijuana use Multiple fractures of ribs of both sides Postmenopausal Surgical History Surgical History No pertinent past surgical history Family History Family History Unknown Cancer Unknown Cerebrovascular accident Unknown Heart disease Unknown Hypertension Social History Social History Smoking status: Never smoker Second hand tobacco smoke exposure: No Alcohol intake: current Drinks per week: 5 Alcohol use details: Bottle 1/day Substance use: current Substance use type: marijuana Last use: COUPLE DAYS AGO Lack of Transportation: YES Lack of Food: Sometimes True Current Housing: I Have Housing Concerned About Future Housing: YES Difficulty Paying Gas/Electric Bills: YES Difficulty Paying for Meds: YES Currently Unemployed: No Education: Don't Know Difficulty w/ Childcare or Family Care: No Gender identity (if verbalized by the patient): Female Spiritual care concerns: No Exam Narrative: APPEARANCE: Cachectic and disheveled HEAD: normocephalic, atraumatic. EYES: PERRLA/EOMI, conjunctivae clear. NOSE: Normal no drainage NECK: Supple. No adenopathy, no masses. RESPIRATORY: Airway patent, respirations nonlabored. Clear to auscultation bilaterally, no rales, rhonchi, wheezing. CARDIOVASCULAR: Regular rate and rhythm without murmurs rubs or gallops. ABDOMINAL: Soft, nontender, nondistended, normal bowel sounds MUSCULOSKELETAL: Moves all extremities. Strength/ROM intact, No edema, No calf tenderness. NEURO: Alert. Cranial nerves II through XII intact. Grossly intact. Tremor at baseline SKIN: Warm, dry. Normal Color Course Course Emergency Course: Patient is afebrile with no leukocytosis. Patient's CMP is similar to her base
[2022-06-14 21:18] VITALS: PULSE 88
[2022-06-14 21:23] LABS: Basophils Absolute Auto 0.1 K/mm3 (0.0-0.1); Basophils Percent Auto 1.2 % (0.2-1.2); Eosinophils Absolute Auto 0.1 K/mm3 (0-0.3); Eosinophils Percent Auto 0.6 % (0-4.4); Hematocrit 37.3 % (37.0-47.0); Hemoglobin 12.6 g/dL (12.0-15.0); Immature Granulocyte Absolute 0.03 K/mm3 (0.00-0.031); Immature Granulocyte Percent A 0.4 % (0-0.5); Lymphocytes Absolute Auto 1.54 K/mm3 (0.9-3.2); Lymphocytes Percent Auto 19.2 % (18.3-44.2); Mean Corpuscular HGB Conc 33.8 g/dl (32-36); Mean Corpuscular Hemoglobin 31.8 pg (26-34); Mean Corpuscular Volume 94.2 fl (80-100); Mean Platelet Volume 10.3 fl (7.4-10.4); Monocytes Percent Auto 11.8 % (2.6-8.5); Neutrophils Absolute Auto 5.4 K/mm3 (1.3-6.7); Neutrophils Percent Auto 66.8 % (45.5-73.1); Platelet Count Result 326 k/mm3 (150-375); Red Blood Count 3.96 M/mm3 (4.2-5.4); Red Cell Distribution Width 11.3 % (11.5-14.5)
[2022-06-14 21:33] LABS: Acetaminophen < 10 ug/mL (10-30); Ammonia < 9 umol/L (9-30); Ethanol < 10 mg/dL (<10); Salicylate < 1.0 mg/dL (2-20)
[2022-06-14 21:34] LABS: Alanine Aminotransferase 33 U/L (6-35); Albumin Level 4.4 g/dL (3.5-5.1); Alkaline Phosphatase 51 U/L (38-126); Anion Gap 5 mmol/L (8-16); Aspartate Amino Transferase 58 U/L (14-36); Bilirubin,Total 0.5 mg/dL (0.2-1.3); Blood Urea Nitrogen 19 mg/dL (7-17); Calcium 9.6 mg/dL (8.4-10.2); Carbon Dioxide 32 mmol/L (22-30); Chloride 99 mmol/L (98-107); Estimated CRCL calculation 47 ml/min; Estimated Glomerular Filt Rate > 60; Glucose 83 mg/dL (65-110); Potassium 3.7 mmol/L (3.4-5.0); Sodium 136 mmol/L (137-145)
[2022-06-14 21:35] LABS: INR 1.1; Partial Thromboplastin Time 27.8 SECONDS (22.3-36.8); Prothrombin Time 13.6 Seconds (11.1-14.7)
[2022-06-14 21:53] LABS: Appearance Urine Clear (Clear); Bilirubin Urine 1+ (Negative); Blood Urine Negative (Negative); Color Urine Yellow (Yellow); Glucose Urine UA Negative (Negative); Ketones Urine Trace mg/dL (Negative); Leukocyte Esterase Ur Negative LEU/UL (Negative); Nitrate Urine Negative (Negative); Protein Urine Negative (Negative); Specific Grav Ur 1.025 (1.001-1.035); Urobilinogen Urine 0.2 mg/dL (<2.0); pH Urine 5.5 (5.0-9.0)
[2022-06-14 21:54] LABS: Mucus Urine Few /lpf; WBC Urine 0-3 /hpf
[2022-06-14] MEDS: SODIUM CHLORIDE 0.9% IV 1,000 ML 250 ML IV CONT (21:54)
[2022-06-14] MEDS: THIAMINE HCL 200 MG/2 ML VIAL 100 MG IV PUSH (21:54)
[2022-06-14 21:55] LABS: Barbiturate Screen Urine Negative (Negative); Benzodiazepines Screen Urine Positive (Negative)
[2022-06-14 21:56] LABS: Amphetamine Screen Urine Negative (Negative); Cannabinoid Screen Urine Negative (Negative); Cocaine Screen Urine Negative (Negative); Methadone Screen Urine Negative (Negative); Opiate Screen Urine Negative (Negative); Phencyclidine Screen Urine Negative (Negative)
[2022-06-14 21:57] LABS: Add Urine Microscopic? YES
[2022-06-14 22:10] LABS: Influenza A QL RT-PCR Negative (Negative); Influenza B QL RT-PCR Negative (Negative); RSV RNA, RT-PCR Negative (Negative); SARS-CoV-2 RNA PCR Negative
--- NOTE | 2022-06-14 22:56 | PM.IMHP ---
H&P: HPI History of Present Illness Date/Time: 06/14/22 22:56 Chief Complaint: Wandering around, no water or electricity Narrative: 67-year-old female with a past medical history of alcoholism, hypertension and hyperlipidemia who presented to the ER after she was found wandering her neighborhood looking for someone to give her water for cats. The patient lives in a home that has no power and no water. She had been hospitalized the through the due to alcoholic encephalopathy. When the patient arrived to the ER she seemed confused. After I talked to the patient for several minutes she was able to answer orientation questions including where she was at and the name of the current president. She thought the month was May in that the year was 2032. Patient was disheveled with poor hygiene. She had dirt caked to her feet. She had no obvious open wounds but some sloughing of skin to the right great toe. She denies any pain. She has peers to be cachectic but she denies changes in her appetite. She states that she drinks a bottle wine a day. She tells me that she last drank 2 days ago. After she was discharged from the hospital she immediately started drinking again. I suspect that the reason the patient has not had a drink in the last 2 days as she was unable to obtain or afford her alcohol. Evidently auto garage mechanic were called as the patient was wondering around the community and people were concerned. The police took her to her home and they found that she did not have any electricity or running water. Review of Systems Review of Systems: Limited as the patient is perseverating about her cats and denies any other symptoms. The patient is intermittently confused. 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 She requests that she be a DNR DNI. She understands that if this is the case that if her heart were to stop she would and she verbalized understanding of this. 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 She does not have a person that she would want make her decisions. She states that she does not have her sister's contact information on her as she does not have her cellphone. Smoking status: Never smoker Second hand tobacco smoke exposure: No Alcohol intake: current Drinks per week: 5 Alcohol use details: Bottle 1/day Substance use: current Substance use type: marijuana Last use: COUPLE DAYS AGO Lack of Transportation: YES Lack of Food: Sometimes True Current Housing: I Have Housing Concerned About Future Housing: YES Difficulty Paying Gas/Electric Bills: YES Difficulty Paying for Meds: YES Currently Unemployed: No Education: Don't Know Difficulty w/ Childcare or Family Care: No Gender identity (if verbalized by the patient): Female Spiritual care concerns: No Meds Home Medications and Allergies Home Medications Medication Instructions Recorded Confirmed Type atorvastatin 20 mg tablet 20 mg PO DAILY 08/30/19 06/15/22 History metoprolol tartrate 25 mg tablet 12.5 mg PO BID 08/30/19 06/15/22 History prenat.vits,brandy,[id number] 1 tablet PO DAILY #90 tabs 06/11/22 06/15/22 Rx Allergies Allergy/AdvReac Type Severity Reaction Status Date / Time poliomyelitis vaccine, live Allergy Unknown Rash Verified 08/28/18 17:17 oral
[2022-06-14 23:06] VITALS: BP 111/78; PULSE 72; RESP 12; O2SAT 98
[2022-06-15] VITALS (8 sets, daily range): BP systolic 107–133; BP diastolic 66–73; PULSE 66–88; RESP 12–18; TEMP 36–36.9; O2SAT 100; BMI 15.0
--- NOTE | 2022-06-15 00:24 | ADMGEN ---
This patient, Paula Valdez, was admitted to 2 Medical Room 254-01. Patient/family oriented to hospital policies and general routines including ID bracelet, bed and alarms, visiting hours, pain management, procedures, bathroom and other care routines, personal items, smoking policy, room service/diet, and visiting hours. Information on how to activate the Rapid Response Team has been discussed. Patient/Family are encouraged to report perceived risks to care and to ask questions if they do not understand what they are told or what they should do.
[2022-06-15] MEDS: MULTIVIT/MIN/PREN/FOL AC/IRON TABLET 1 TAB PO (10:01)
[2022-06-15] MEDS: METOPROLOL TARTRATE 12.5 MG TABLET PO ×2 (10:01→21:10)
[2022-06-15] MEDS: ATORVASTATIN 20 MG TABLET PO (10:01)
--- NOTE | 2022-06-15 10:45 | PM.IMPN ---
Progress Note: A&P Assessment and Plan (1) Cachectic: Code(s): R64 - Cachexia Status: Acute Assessment and Plan: 06/15/2022 interval history: patient is 67-year-old female with history of alcoholism was discharged on 06/11 artery patient was treated for alcohol withdrawal, apparently patient went home and started to drink, and was wondering around the street, patient was found by the police and taken to home patient did not have any utilities water or electric and was brought to ER for further evaluation, patient admitted in this setting, will place the patient on CIWA protocol and Librium 25 mg every 6 hours as needed, will have dietitian follow the patient, will monitor patient electrolytes further recommendation to follow, patient will need placement as her home situation is very poor, will have PT OT evaluate the patient. (2) Severe protein-calorie malnutrition: Code(s): E43 - Unspecified severe protein-calorie malnutrition Status: Acute (3) Altered mental status: Qualifiers: Altered mental status type: unspecified Qualified Code(s): R41.82 - Altered mental status, unspecified Code(s): R41.82 - Altered mental status, unspecified Status: Acute (4) Alcohol dependence: Code(s): F10.20 - Alcohol dependence, uncomplicated Status: Acute Subjective Date/time seen: 06/15/22 10:45 Chief Complaint: Wandering around, no water or electricity Narrative: 67-year-old female with a past medical history of alcoholism, hypertension and hyperlipidemia who presented to the ER after she was found wandering her neighborhood looking for someone to give her water for cats.? The patient lives in a home that has no power and no water.? She had been hospitalized the through the due to alcoholic encephalopathy.? When the patient arrived to the ER she seemed confused.? After I talked to the patient for several minutes she was able to answer orientation questions including where she was at and the name of the current president.? She thought the month was May in that the year was 2032.? Patient was disheveled with poor hygiene.? She had dirt caked to her feet.? She had no obvious open wounds but some sloughing of skin to the right great toe.? She denies any pain.? She has peers to be cachectic but she denies changes in her appetite.? She states that she drinks a bottle wine a day.? She tells me that she last drank 2 days ago.? After she was discharged from the hospital. 06/15/2022 interval history: patient is 67-year-old female with history of alcoholism was discharged on 06/11 artery patient was treated for alcohol withdrawal, apparently patient went home and started to drink, and was wondering around the street, patient was found by the police and taken to home patient did not have any utilities water or electric and was brought to ER for further evaluation, patient admitted in this setting, will place the patient on CIWA protocol and Librium 25 mg every 6 hours as needed, will have dietitian follow the patient, will monitor patient electrolytes further recommendation to follow, patient will need placement as her home situation is very poor, will have PT OT evaluate the patient. Review of Systems Review of Systems: ROS unobtainable: Yes unobtainable due to mental status Exam Narrative: appears chronically ill malnourished Patient is comfortable, NAD HEENT: eyes are clear and none icteric LUNGS: normal respiratory effort ABD: not distended Lower extremities: no edema SKIN: nonjaundiced Neuro: grossly intact. Objective Data Vital Signs Vital Signs: Vital Signs - 24 hr 06/14/22 21:00 06/14/22 21:18 06/14/22 23:06 Temperature 97.8 F Pulse Rate 92 88 72 Pulse Rate [Right Radial] Respiratory Rate 18 12 Blood Pressure 132/76 111/78 Pulse Oximetry 97 98 Oxygen Delivery 06/15/22 00:15 06/15/22 06:00 06/15/22 10:01 Temperature 97.9 F Pulse Rate 66
[2022-06-16 04:54] VITALS: BP 103/79; PULSE 75; RESP 18; TEMP 36.2; O2SAT 100
[2022-06-16 08:30] VITALS: BP 122/78; PULSE 80
[2022-06-16 08:39] VITALS: PULSE 80
[2022-06-16] MEDS: METOPROLOL TARTRATE 12.5 MG TABLET PO (08:39)
[2022-06-16] MEDS: MULTIVIT/MIN/PREN/FOL AC/IRON TABLET 1 TAB PO (08:39)
[2022-06-16] MEDS: ATORVASTATIN 20 MG TABLET PO (08:40)
[2022-06-16] MEDS: FOLIC ACID 1 MG TABLET PO (08:40)
[2022-06-16] MEDS: THIAMINE HCL 100 MG TABLET PO (08:40)
[2022-06-16 08:52] LABS: Hematocrit 36.6 % (37.0-47.0); Hemoglobin 12.2 g/dL (12.0-15.0); Mean Corpuscular HGB Conc 33.3 g/dl (32-36); Mean Corpuscular Hemoglobin 31.9 pg (26-34); Mean Corpuscular Volume 95.8 fl (80-100); Mean Platelet Volume 10.7 fl (7.4-10.4); Platelet Count Result 319 k/mm3 (150-375); Red Blood Count 3.82 M/mm3 (4.2-5.4); Red Cell Distribution Width 11.5 % (11.5-14.5); White Blood Count 5.5 K/mm3 (4.5-10.0)
[2022-06-16 09:06] LABS: Anion Gap 3 mmol/L (8-16); Blood Urea Nitrogen 14 mg/dL (7-17); Calcium 9.6 mg/dL (8.4-10.2); Carbon Dioxide 31 mmol/L (22-30); Chloride 99 mmol/L (98-107); Estimated CRCL calculation 41 ml/min; Estimated Glomerular Filt Rate > 60; Glucose 108 mg/dL (65-110); Magnesium 1.7 mg/dL (1.6-2.3); Potassium 3.3 mmol/L (3.4-5.0); Sodium 133 mmol/L (137-145)
[2022-06-16] MEDS: POTASSIUM CHLORIDE 20 MEQ TABLET 40 MEQ PO (09:49)
--- NOTE | 2022-06-16 12:15 | PM.IMPN ---
Progress Note: A&P Assessment and Plan (1) Cachectic: Code(s): R64 - Cachexia Status: Acute (2) Severe protein-calorie malnutrition: Code(s): E43 - Unspecified severe protein-calorie malnutrition Status: Acute (3) Altered mental status: Qualifiers: Altered mental status type: unspecified Qualified Code(s): R41.82 - Altered mental status, unspecified Code(s): R41.82 - Altered mental status, unspecified Status: Acute (4) Alcohol dependence: Code(s): F10.20 - Alcohol dependence, uncomplicated Status: Acute Plan The patient has flat affect and slowed responses. I suspect that some of her ?altered mental status? is due to untreated psychiatric illness and or affects of long-term alcohol use. Patient does not have any evidence of current alcohol withdrawal and no injuries that was suggest she had recent seizure. The patient clearly cannot return to her home where she does not have electric or water. She evidently lives in very poor conditions. Patient would benefit from placement in secured housing. Unfortunately the patient does have some animals in the home which are currently left unattended. She does not have any family members or friends around the could take care of her animals. An animal resting may need to be notified of her and garcia so that they do not come to harm. If her intervals are not cared for this may make the patient resistant to efforts of assistance. Will place PT and OT consult for evaluation in help with determination of discharge disposition. Patient appears cachectic with severe protein calorie malnutrition. Her weight is stable compared to prior hospitalizations. With my discussion with the patient does not seem that she has much in the form of nutritional sustenance in her home. Will provide dietary supplements and monitor. Multivitamins have been ordered. Given the patient's alcohol use history will continue daily vitamins as this will also help with the patient's nutritional status. Also provide tractor thiamin. Will continue to monitor for signs of withdrawal and continue Librium as needed. The patient was not intoxicated at the time of her arrival to the hospital. Will continue to monitor electrolytes. The patient does have some essential hypertension but blood pressures appear stable. Will continue home medications. 06/16/2022 interval history:??patient is 67-year-old female with history of alcoholism was discharged on 06/11 artery patient was treated for alcohol withdrawal, apparently patient went home and started to drink, and was wondering around the street,? patient was found by the police and taken to home patient did not have any utilities water or electric and was brought to ER for further evaluation,? patient admitted in this setting, we have placed the patient on CIWA protocol and Librium 25 mg every 6 hours as needed, will have dietitian follow the patient, will monitor patient electrolytes further recommendation to follow, patient will need placement as her home situation is very poor,?discussed with account executive healthcare working on placement, will have PT OT evaluate the patient. Subjective Date/time seen: 06/16/22 12:15 06/16/2022 interval history:??patient is 67-year-old female with history of alcoholism was discharged on 06/11 artery patient was treated for alcohol withdrawal, apparently patient went home and started to drink, and was wondering around the street,? patient was found by the police and taken to home patient did not have any utilities water or electric and was brought to ER for further evaluation,? patient admitted in this setting, we have placed the patient on CIWA protocol and Librium 25 mg every 6 hours as needed, will have dietitian follow the patient, will monitor patient electrolytes further recommendation to follow, patient will need placement as her home situation is very poor,?discussed with account executive healthcare working on
--- NOTE | 2022-06-25 18:23 | PM.DS ---
DS: Admitting Diagnosis Discharge Date 06/16/22 Admitting Diagnosis Wandering around, no water or electricity DS: Discharge Diagnosis Discharge Diagnosis (1) Cachectic: Code(s): R64 - Cachexia Status: Acute (2) Severe protein-calorie malnutrition: Code(s): E43 - Unspecified severe protein-calorie malnutrition Status: Acute (3) Altered mental status: Code(s): R41.82 - Altered mental status, unspecified Status: Acute (4) Alcohol dependence: Code(s): F10.20 - Alcohol dependence, uncomplicated Status: Acute Plan The patient has flat affect and slowed responses. I suspect that some of her ?altered mental status? is due to untreated psychiatric illness and or affects of long-term alcohol use. Patient does not have any evidence of current alcohol withdrawal and no injuries that was suggest she had recent seizure. The patient clearly cannot return to her home where she does not have electric or water. She evidently lives in very poor conditions. Patient would benefit from placement in secured housing. Unfortunately the patient does have some animals in the home which are currently left unattended. She does not have any family members or friends around the could take care of her animals. An animal resting may need to be notified of her and garcia so that they do not come to harm. If her intervals are not cared for this may make the patient resistant to efforts of assistance. Will place PT and OT consult for evaluation in help with determination of discharge disposition. Patient appears cachectic with severe protein calorie malnutrition. Her weight is stable compared to prior hospitalizations. With my discussion with the patient does not seem that she has much in the form of nutritional sustenance in her home. Will provide dietary supplements and monitor. Multivitamins have been ordered. Given the patient's alcohol use history will continue daily vitamins as this will also help with the patient's nutritional status. Also provide tractor thiamin. Will continue to monitor for signs of withdrawal and continue Librium as needed. The patient was not intoxicated at the time of her arrival to the hospital. Will continue to monitor electrolytes. The patient does have some essential hypertension but blood pressures appear stable. Will continue home medications. 06/16/2022 interval history:??patient is 67-year-old female with history of alcoholism was discharged on 06/11 artery patient was treated for alcohol withdrawal, apparently patient went home and started to drink, and was wondering around the street,? patient was found by the police and taken to home patient did not have any utilities water or electric and was brought to ER for further evaluation,? patient admitted in this setting, we have placed the patient on CIWA protocol and Librium 25 mg every 6 hours as needed, will have dietitian follow the patient, will monitor patient electrolytes further recommendation to follow, patient will need placement as her home situation is very poor,?discussed with nursing care attendant working on placement, will have PT OT evaluate the patient. DS: Summary Hospital Course Reason for hospitalization: Chief Complaint: Wandering around, no water or electricity Narrative: 67-year-old female with a past medical history of alcoholism, hypertension and hyperlipidemia who presented to the ER after she was found wandering her neighborhood looking for someone to give her water for cats.? The patient lives in a home that has no power and no water.? She had been hospitalized the through the due to alcoholic encephalopathy.? When the patient arrived to the ER she seemed confused.? After I talked to the patient for several minutes she was able to answer orientation questions including where she was at and the name of the current president.? She thought the month was May in that the year was 2032.? Patient was dis
--- NOTE | 2022-07-11 08:13 | PC.NURSE ---
LATE ENTRY This note is being entered to document information to the patient's record. The following information was omitted on [06/14/22], by [Dr. Solitario]. Straight cath patient for UA collection VORB Dr. Lelia Solitario/Chris NOEL
== END 2022-06-16 12:48 | disposition left against medical advice (07) ==
LOC: ANHED 21:46 → ANH2MED 06-15 00:28
PROVIDERS: Admitting Provider Internal Medicine; Emergency Provider Emergency Medicine; PCP Family Medicine; Visit Provider Family Medicine
DX: R64 Cachexia (principal); E43 Unspecified severe protein-calorie malnutrition; R41.82 Altered mental status, unspecified; F10.229 Alcohol dependence with intoxication, unspecified; Y90.0 Blood alcohol level of less than 20 mg/100 ml; R62.7 Adult failure to thrive; Z68.1 Body mass index [BMI] 19.9 or less, adult; Z20.822 Contact with and (suspected) exposure to COVID-19; G93.40 Encephalopathy, unspecified; Z66 Do not resuscitate; G31.9 Degenerative disease of nervous system, unspecified; R90.82 White matter disease, unspecified; I25.10 Atherosclerotic heart disease of native coronary artery without angina pectoris; R51.9 Headache, unspecified; R94.31 Abnormal electrocardiogram [ECG] [EKG]; E78.00 Pure hypercholesterolemia, unspecified; I10 Essential (primary) hypertension; F12.90 Cannabis use, unspecified, uncomplicated; Z79.899 Other long term (current) drug therapy
CPT/HCPCS: 36415; 51701; 70450; 80048; 80053; 80307; 81001; 82140; 83735; 85025; 85027; 85610; 85730; 87637; 93005; 96361; 96374; 97161; 97165; 99285; A9270; G0378; J3411; J7030

== ENCOUNTER 2022-06-23 18:03 | Observation (INO) | payer MEDICARE, SELFPAY ==
[2022-06-23] VITALS (18 sets, daily range): BP systolic 76–121; BP diastolic 50–76; PULSE 75–87; RESP 10–18; TEMP 36.6; O2SAT 97–100; BMI 15.3
--- NOTE | ~2022-06-23 | XR_ITS ---
EXAMINATION: XR chest 1V portable Exam Date/Time: 06/23/2022 19:43 WOMEN'S STUDIES LECTURER HISTORY: weakness Comparison: 08/28/2018. RESULT: Lines, tubes, and devices: None. Lungs and pleura: Senescent change, otherwise clear. Cardiomediastinal silhouette: Stable. Other: No acute osseous or upper abdominal finding. IMPRESSION: No acute cardiopulmonary process. Reviewed, dictated and finalized at location K. N'S STUDIES LECTURER
--- NOTE | ~2022-06-23 | CT_ITS ---
EXAMINATION: CT brain wo con DATE: 06/23/2022 20:12 INDICATION: altered mental status . TECHNIQUE: Computed tomography (CT) of the head was performed without intravenous contrast. The mA wa s adjusted according to patient size. Iterative reconstruction technique was employed. The dose-lengt h product was 605.33 mGy-cm. COMPARISON: 06/14/2022. FINDINGS: No acute intracranial hemorrhage or extra-axial fluid collection. No hydrocephalus, mass, or herniation. No acute ischemic infarct. Unremarkable dural venous sinus attenuation. No acute osseous abnormality. Trace right mastoid fluid, the remaining aerated spaces are clear. Moderate atrophy and mild chronic white matter change. Atherosclerotic intracranial calcification. IMPRESSION: No acute intracranial process. Reviewed, dictated and finalized at location K. PTION AGENT
[2022-06-23 18:33] LABS: Basophils Absolute Auto 0.1 K/mm3 (0.0-0.1); Eosinophils Absolute Auto 0.1 K/mm3 (0-0.3); Eosinophils Percent Auto 1.5 % (0-4.4); Hemoglobin 11.1 g/dL (12.0-15.0); Immature Granulocyte Absolute 0.01 K/mm3 (0.00-0.031); Immature Granulocyte Percent A 0.2 % (0-0.5); Lymphocytes Absolute Auto 2.49 K/mm3 (0.9-3.2); Lymphocytes Percent Auto 42.6 % (18.3-44.2); Mean Corpuscular HGB Conc 33.6 g/dl (32-36); Mean Corpuscular Hemoglobin 31.4 pg (26-34); Mean Corpuscular Volume 93.5 fl (80-100); Mean Platelet Volume 9.7 fl (7.4-10.4); Monocytes Absolute Auto 0.5 K/mm3 (0.1-0.6); Monocytes Percent Auto 7.9 % (2.6-8.5); Neutrophils Absolute Auto 2.7 K/mm3 (1.3-6.7); Neutrophils Percent Auto 46.8 % (45.5-73.1); Platelet Count Result 370 k/mm3 (150-375); Red Blood Count 3.53 M/mm3 (4.2-5.4); Red Cell Distribution Width 11.3 % (11.5-14.5); White Blood Count 5.8 K/mm3 (4.5-10.0)
[2022-06-23 18:43] LABS: Alanine Aminotransferase 21 U/L (6-35); Albumin Level 4.2 g/dL (3.5-5.1); Alkaline Phosphatase 46 U/L (38-126); Anion Gap 10 mmol/L (8-16); Aspartate Amino Transferase 38 U/L (14-36); Bilirubin,Total 0.3 mg/dL (0.2-1.3); Blood Urea Nitrogen 13 mg/dL (7-17); Calcium 8.7 mg/dL (8.4-10.2); Carbon Dioxide 24 mmol/L (22-30); Chloride 106 mmol/L (98-107); Estimated Glomerular Filt Rate > 60; Glucose 94 mg/dL (65-110); Potassium 3.8 mmol/L (3.4-5.0); Sodium 140 mmol/L (137-145)
[2022-06-23 18:46] LABS: INR 1.1; Partial Thromboplastin Time 26.9 SECONDS (22.3-36.8); Prothrombin Time 13.6 Seconds (11.1-14.7)
[2022-06-23 19:43] LABS: Ammonia < 9 umol/L (9-30)
[2022-06-23 20:00] LABS: Ethanol 346 mg/dL (<10)
--- NOTE | 2022-06-23 20:01 | PM.IMHP ---
H&P: HPI History of Present Illness Date/Time: 06/23/22 20:01 Chief Complaint: 67 years old female with past medical history of chronic alcoholism multiple admission to the hospital recent discharge from the hospital on 06/16/2022 patient presented to the hospital with altered mental status patient is confused unable to provide history history was taken from the ER physician and ER records patient presented to the hospital with confusion decreased appetite and able to care for herself apparently patient continued to drink alcohol at the ER patient was confused and able to provide history blood pressure was on the lower side between 85 and 95 systolic patient was given IV fluid ammonia was normal alcohol level and urine drug screen is pending CT scan of the head is pending reviewed chest x-ray by myself no significant finding pending report Review of Systems Review of Systems: Unable to provide history due to altered mental status PMFSH Past Medical History Medical History BMI less than 19,adult Coronary artery disease Hypercholesteremia Hypertension Marijuana use Multiple fractures of ribs of both sides Postmenopausal Surgical History Surgical History No pertinent past surgical history Family History Family History Other Cancer Cerebrovascular accident Heart disease Hypertension Social History Social History Social History: 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 She requests that she be a DNR DNI. She understands that if this is the case that if her heart were to stop she would and she verbalized understanding of this. 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 She does not have a person that she would want make her decisions. She states that she does not have her sister's contact information on her as she does not have her cellphone. Smoking status: Never smoker Second hand tobacco smoke exposure: No Alcohol intake: current Drinks per week: 5 Alcohol use details: Bottle 1/day Substance use: current Substance use type: marijuana Last use: COUPLE DAYS AGO Lack of Transportation: YES Lack of Food: Sometimes True Current Housing: I Have Housing Concerned About Future Housing: YES Difficulty Paying Gas/Electric Bills: YES Difficulty Paying for Meds: YES Currently Unemployed: No Education: Don't Know Difficulty w/ Childcare or Family Care: No Gender identity (if verbalized by the patient): Female Spiritual care concerns: No Meds Home Medications and Allergies Home Medications Medication Instructions Recorded Confirmed Type atorvastatin 20 mg tablet 20 mg PO DAILY 08/30/19 06/15/22 History metoprolol tartrate 25 mg tablet 12.5 mg PO BID 08/30/19 06/15/22 History prenat.vits,brandy,pzw-duyx-ttupe 1 tablet PO DAILY #90 tabs 06/11/22 06/15/22 Rx Allergies Allergy/AdvReac Type Severity Reaction Status Date / Time poliomyelitis vaccine, live Allergy Unknown Rash Verified 08/28/18 17:17 oral Vital Signs Vital Signs - 24 hr 06/23/22 18:21 Temperature 97.8 F Pulse Rate 76 Respiratory Rate 16 Blood Pressure 97/58 L Pulse Oximetry 98 Exam Narrative: GENERAL: Confused looks severely malnourished. HEAD: Normocephalic, atraumatic. NECK: Supple. No adenopathy, no masses. RESPIRATORY: Airway patent, respirations nonlabored. Clear to auscultation bilaterally, no rales, rhonchi, wheezing. CARDIOVASCULAR: Regular rate and rhythm without murmurs, rubs, or gallops. Peripheral pulses 2+ and equal bilaterally. ABDOMINAL: Soft, nontender, nondistended, no hepatosplenomegaly. Normoactive BS. MUSCULOSKELETAL: Moves all extremities. Strength/ROM intact without gross deformities or TTP. No edema. No calf te
--- NOTE | 2022-06-23 20:09 | ED.GENADULT ---
HPI - General Adult General Chief complaint: Altered Mental Status Stated complaint: AMS, +ETOH Time Seen by Provider: 06/23/22 19:15 History of Present Illness HPI narrative: Patient is a 67-year-old female who presents emergency department with chief complaint of altered mental status. Patient has history of alcohol abuse and also history of delirium the patient lives in a poor living situation does not have running water or electricity and has multiple animals. The patient has been hospitalized multiple times recently and tonight was found [place] around [place] with an altered mental status. History is limited from the patient as she currently believes it is 2002 Related Data Home Medications Medication Instructions Recorded Confirmed atorvastatin 20 mg tablet 20 mg PO DAILY 08/30/19 06/15/22 metoprolol tartrate 25 mg tablet 12.5 mg PO BID 08/30/19 06/15/22 Allergies Allergy/AdvReac Type Severity Reaction Status Date / Time poliomyelitis vaccine, live Allergy Unknown Rash Verified 08/28/18 17:17 oral Review of Systems Review of Systems: A 10 system review of systems was completed on the patient and is negative except for what is stated in the HPI. Nursing and ancillary documentation was reviewed. 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 She understands that if this is the case that if her heart were to stop she would and she verbalized understanding of this. 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 She does not have a person that she would want make her decisions. She states that she does not have her sister's contact information on her as she does not have her cellphone. Smoking status: Never smoker Second hand tobacco smoke exposure: No Alcohol intake: current Drinks per week: 5 Alcohol use details: Bottle 1/day Substance use: current Substance use type: marijuana Last use: COUPLE DAYS AGO Lack of Transportation: YES Lack of Food: Sometimes True Current Housing: I Have Housing Concerned About Future Housing: YES Difficulty Paying Gas/Electric Bills: YES Difficulty Paying for Meds: YES Currently Unemployed: No Education: Don't Know Difficulty w/ Childcare or Family Care: No Gender identity (if verbalized by the patient): Female Spiritual care concerns: No Exam Narrative: GENERAL: Ill-appearing, cachectic, and in no acute distress. HEAD: Normocephalic, atraumatic. EYES: PERRLA and EOMI. ENT: Nares clear, no rhinorrhea or epistaxis. Mucous membranes moist. NECK: Supple. CHEST: Clear to auscultation. No respiratory distress. HEART: Regular rate and rhythm. No murmur heard. Normal peripheral pulses. ABDOMEN: Soft, nontender, nondistended, normal active bowel sounds. EXTREMITIES: Normal range of motion. No edema. SKIN: Warm, dry, no rash. NEURO: No focal deficits. Alert and oriented x1. PSYCH: Normal mood and affect. Course Vital Signs Vital signs: Vital Signs Temperature 36.6 C 06/23/22 18:21 Pulse Rate 76 06/23/22 18:21 Respiratory Rate 16 06/23/22 18:21 Blood Pressure 97/58 L 06/23/22 18:21 Pulse Oximetry 98 06/23/22 18:21 Temperature 36.6 C 06/23/22 18:21 Pulse Rate 84 06/23/22 20:00 Respirato
[2022-06-23] MEDS: SODIUM CHLORIDE 0.9% IV 1,000 ML 999 ML IV CONT (20:19)
[2022-06-23 20:30] LABS: Creatine Kinase 126 U/L (30-135)
[2022-06-23 21:07] LABS: Vitamin D 25 Hydroxy 39.7 ng/mL
[2022-06-23] MEDS: THIAMINE 500 MG/NS 100 ML 500 MG/100 ML BAG 200 MG IVPB (21:15)
[2022-06-23 21:24] LABS: Influenza A QL RT-PCR Negative (Negative); Influenza B QL RT-PCR Negative (Negative); SARS-CoV-2 RNA PCR Negative
[2022-06-23 21:56] LABS: Folic Acid 8.1 ng/mL (2.76->20)
--- NOTE | 2022-06-23 22:26 | ADMGEN ---
This patient, Paula Valdez, was admitted to Medical Room 246-01. Patient/family oriented to hospital policies and general routines including ID bracelet, bed and alarms, visiting hours, pain management, procedures, bathroom and other care routines, personal items, smoking policy, room service/diet, and visiting hours. Information on how to activate the Rapid Response Team has been discussed. Patient/Family are encouraged to report perceived risks to care and to ask questions if they do not understand what they are told or what they should do.
[2022-06-23] MEDS: FAMOTIDINE 20 MG TABLET PO (23:01)
[2022-06-23] MEDS: HEPARIN SODIUM 5,000 UNITS/ML VIAL 5000 UNITS SUB-Q (23:01)
[2022-06-23] MEDS: SODIUM CHLORIDE 0.9% IV 1,000 ML 100 ML IV CONT (23:02)
[2022-06-23 23:27] LABS: Glucose Point of Care 71 mg/dl (65-105)
[2022-06-24] VITALS (9 sets, daily range): BP systolic 103–133; BP diastolic 67–88; PULSE 70–109; RESP 17–18; TEMP 36.4–37.1; O2SAT 99–100; BMI 15.3
[2022-06-24 05:32] LABS: Appearance Urine Clear (Clear); Bilirubin Urine Negative (Negative); Blood Urine Negative (Negative); Color Urine Yellow (Yellow); Glucose Urine UA Negative (Negative); Ketones Urine Negative (Negative); Leukocyte Esterase Ur Negative LEU/UL (Negative); Nitrate Urine Negative (Negative); Protein Urine Negative (Negative); Urobilinogen Urine 0.2 mg/dL (<2.0); pH Urine 5.5 (5.0-9.0)
[2022-06-24 05:39] LABS: Add Urine Microscopic? NO
[2022-06-24 05:49] LABS: Amphetamine Screen Urine Negative (Negative); Barbiturate Screen Urine Negative (Negative); Benzodiazepines Screen Urine Negative (Negative); Cannabinoid Screen Urine Negative (Negative); Cocaine Screen Urine Negative (Negative); Methadone Screen Urine Negative (Negative); Opiate Screen Urine Negative (Negative); Phencyclidine Screen Urine Negative (Negative)
[2022-06-24 06:05] LABS: Glucose Point of Care 102 mg/dl (65-105)
[2022-06-24 06:05] LABS: Glucose Point of Care 65 mg/dl (65-105)
[2022-06-24 06:21] LABS: Basophils Absolute Auto 0.1 K/mm3 (0.0-0.1); Basophils Percent Auto 1.4 % (0.2-1.2); Eosinophils Absolute Auto 0.1 K/mm3 (0-0.3); Eosinophils Percent Auto 2.3 % (0-4.4); Hematocrit 35.8 % (37.0-47.0); Hemoglobin 11.6 g/dL (12.0-15.0); Immature Granulocyte Absolute 0.01 K/mm3 (0.00-0.031); Immature Granulocyte Percent A 0.2 % (0-0.5); Lymphocytes Absolute Auto 1.86 K/mm3 (0.9-3.2); Lymphocytes Percent Auto 38.5 % (18.3-44.2); Mean Corpuscular HGB Conc 32.4 g/dl (32-36); Mean Corpuscular Hemoglobin 31.4 pg (26-34); Mean Platelet Volume 10.1 fl (7.4-10.4); Monocytes Absolute Auto 0.3 K/mm3 (0.1-0.6); Monocytes Percent Auto 6.4 % (2.6-8.5); Neutrophils Absolute Auto 2.5 K/mm3 (1.3-6.7); Neutrophils Percent Auto 51.2 % (45.5-73.1); Platelet Count Result 316 k/mm3 (150-375); Red Blood Count 3.69 M/mm3 (4.2-5.4); Red Cell Distribution Width 11.4 % (11.5-14.5); White Blood Count 4.8 K/mm3 (4.5-10.0)
[2022-06-24 06:33] LABS: Alanine Aminotransferase 20 U/L (6-35); Alkaline Phosphatase 58 U/L (38-126); Anion Gap 9 mmol/L (8-16); Aspartate Amino Transferase 37 U/L (14-36); Bilirubin,Total 0.5 mg/dL (0.2-1.3); Blood Urea Nitrogen 9 mg/dL (7-17); Calcium 8.3 mg/dL (8.4-10.2); Carbon Dioxide 20 mmol/L (22-30); Chloride 110 mmol/L (98-107); Estimated CRCL calculation 50 ml/min; Estimated Glomerular Filt Rate > 60; Glucose 84 mg/dL (65-110); Magnesium 1.7 mg/dL (1.6-2.3); Potassium 3.6 mmol/L (3.4-5.0); Sodium 139 mmol/L (137-145)
[2022-06-24] MEDS: FAMOTIDINE 20 MG TABLET PO (08:30)
[2022-06-24] MEDS: HEPARIN SODIUM 5,000 UNITS/ML VIAL 5000 UNITS SUB-Q (08:30)
[2022-06-24] MEDS: FOLIC ACID 1 MG TABLET PO (08:30)
[2022-06-24] MEDS: THIAMINE HCL 100 MG TABLET PO (08:30)
--- NOTE | 2022-06-24 11:56 | PM.IMPN ---
Progress Note: A&P Assessment and Plan (1) Alcohol dependence: Code(s): F10.20 - Alcohol dependence, uncomplicated Status: Acute Assessment and Plan: Counseling once patient is more awake Social service consult Alcohol withdrawal protocol Folic acid 1 mg daily and thiamine 100 mg daily Lorazepam 2 mg IV push q.4h p.r.n. Patient with dementia most likely caused by alcohol abuse. Patient only oriented to self. Patient states that she lives alone. PT and OT assessment recommends placement. Do not believe it is safe for patient to return home to care for self. Is believe that patient does not have electricity or running water at home. CIWA score 4 Librium 25 mg q6h as needed. (2) Altered mental status: Code(s): R41.82 - Altered mental status, unspecified Status: Acute Assessment and Plan: Multifactorial most likely related to acute metabolic encephalopathy probably related to severe protein calorie malnutrition dehydration chronic alcoholism No evidence of seizure clinically MRI of the brain ordered CT scan of the head no acute intracranial process (3) Severe protein-calorie malnutrition: Code(s): E43 - Unspecified severe protein-calorie malnutrition Status: Acute Assessment and Plan: Patient has history of severe malnutrition. Patient with a BMI of 15.3. Malnutrition most likely due to homelessness. Associated with cachexia Dietitian consult Folic acid, B12, vitamin-D level all within normal limits Time Spent With Patient Time with patient: 25 - 35 minutes Subjective Date/time seen: 06/24/22 11:56 Interval history: 67-year-old female with a history of alcoholism and dementia. Patient sitting up in chair eating breakfast while talking to her. Patient is pleasantly confused. Patient states that she is in here for a a broken arm and it was discovered in her records that patient had broken arm in March of 2020. When asking patient about alcohol abuse she stated that she has not used alcohol for a long time although she did come into the ER with an alcohol of 346. Patient is only oriented to self. Pt does not have any concerns at this time. Review of Systems Review of Systems: All systems reviewed & are unremarkable except as noted in HPI and below Exam Narrative: GENERAL: Comfortable, no acute distress HENMT: moist mucous membranes EYES: EOM intact b/l NECK: no lymphadenopathy RESPIRATORY: clear to auscultation CARDIO: RRR GI: soft, nontender, bowel sounds present SKIN: no rashes EXTREMITIES: no edema, redness or tenderness Objective Data Vital Signs Vital Signs: Vital Signs - 24 hr 06/23/22 18:21 06/23/22 18:21 06/23/22 18:22 Temperature 97.8 F Pulse Rate 76 Respiratory Rate 16 Blood Pressure 97/58 L 97/58 L Pulse Oximetry 98 98 98 Oxygen Delivery 06/23/22 18:30 06/23/22 18:46 06/23/22 19:06 Temperature Pulse Rate Respiratory Rate 10 L Blood Pressure 121/50 L 83/51 L Pulse Oximetry Oxygen Delivery 06/23/22 19:15 06/23/22 19:16 06/23/22 19:30 Temperature Pulse Rate 77 75 Respiratory Rate 15 Blood Pressure 76/53 L 84/57 L Pulse Oximetry Oxygen Delivery 06/23/22 19:37 06/23/22 19:45 06/23/22 20:00 Temperature Pulse Rate 80 84 Respiratory Rate 16 16 Blood Pressure 88/65 L 91/64 L Pulse Oximetry 97 Oxygen Delivery 06/23/22 21:53 06/23/22 21:53 06/23/22 20:13 Temperature Pulse Rate 80 76 Respiratory Rate 16 Blood Pressure 99/62 L Pulse Oximetry 98 97 Oxygen Delivery 06/23/22 20:14 06/23/22 20:15 06/23/22 20:16 Temperature Pulse Rate 78 77 78 Respiratory Rate 14 13 15 Blood Pressure 105/69 91/69 L 100/72 Pulse Oximetry 98 98 98 Oxygen Delivery 06/23/22 22:38 06/23/22 22:00 06/23/22 22:00 Temperature 97.9 F Pulse Rate 87 78 Respiratory Rate 18 16 Blood Pressure 108/62 105/76
[2022-06-24 12:16] LABS: Glucose Point of Care 113 mg/dl (65-105)
[2022-06-24] MEDS: diazePAM (*CRX) 5 MG TABLET PO (16:48)
[2022-06-24 18:27] LABS: Glucose Point of Care 109 mg/dl (65-105)
[2022-06-24] MEDS: LORazepam INJ (*CRX) 2 MG/ML VIAL 1 MG IV PUSH (21:09)
[2022-06-25] VITALS (9 sets, daily range): BP systolic 107–134; BP diastolic 59–72; PULSE 56–86; RESP 18–21; TEMP 36.5–37.1; O2SAT 99–100
--- NOTE | 2022-06-25 00:06 | PC.NURSE ---
Dr. Diggs confirmed patient should remain full code status despite reporting patient previously requested DNR/DNI on admission. Patient remains confused, alert to self only.
[2022-06-25] MEDS: chlordiazePOXIDE (*CRX) 25 MG CAPSULE PO (04:20)
[2022-06-25 04:43] LABS: Glucose Point of Care 76 mg/dl (65-105)
[2022-06-25 06:18] LABS: Basophils Absolute Auto 0.1 K/mm3 (0.0-0.1); Basophils Percent Auto 1.5 % (0.2-1.2); Eosinophils Absolute Auto 0.1 K/mm3 (0-0.3); Eosinophils Percent Auto 2.7 % (0-4.4); Hematocrit 32.6 % (37.0-47.0); Hemoglobin 10.9 g/dL (12.0-15.0); Immature Granulocyte Absolute 0.01 K/mm3 (0.00-0.031); Immature Granulocyte Percent A 0.2 % (0-0.5); Lymphocytes Absolute Auto 1.61 K/mm3 (0.9-3.2); Mean Corpuscular HGB Conc 33.4 g/dl (32-36); Mean Corpuscular Hemoglobin 31.9 pg (26-34); Mean Corpuscular Volume 95.3 fl (80-100); Mean Platelet Volume 10.1 fl (7.4-10.4); Monocytes Absolute Auto 0.5 K/mm3 (0.1-0.6); Monocytes Percent Auto 11.2 % (2.6-8.5); Neutrophils Absolute Auto 1.8 K/mm3 (1.3-6.7); Neutrophils Percent Auto 44.4 % (45.5-73.1); Platelet Count Result 271 k/mm3 (150-375); Red Blood Count 3.42 M/mm3 (4.2-5.4); Red Cell Distribution Width 11.3 % (11.5-14.5)
[2022-06-25 06:33] LABS: Alanine Aminotransferase 18 U/L (6-35); Albumin Level 3.6 g/dL (3.5-5.1); Alkaline Phosphatase 43 U/L (38-126); Anion Gap 7 mmol/L (8-16); Aspartate Amino Transferase 30 U/L (14-36); Bilirubin,Total 0.6 mg/dL (0.2-1.3); Blood Urea Nitrogen 11 mg/dL (7-17); Calcium 8.6 mg/dL (8.4-10.2); Carbon Dioxide 26 mmol/L (22-30); Chloride 105 mmol/L (98-107); Estimated CRCL calculation 42 ml/min; Estimated Glomerular Filt Rate > 60; Glucose 104 mg/dL (65-110); Magnesium 1.7 mg/dL (1.6-2.3); Potassium 3.3 mmol/L (3.4-5.0); Sodium 138 mmol/L (137-145)
[2022-06-25] MEDS: POTASSIUM CHLORIDE 20 MEQ PACKET (FOR LIQUID) PO (08:12)
[2022-06-25] MEDS: MAGNESIUM SULF 2 GM/WATER 50ML 2 GM/50 ML BAG IVPB (08:12)
[2022-06-25] MEDS: FAMOTIDINE 20 MG TABLET PO ×2 (08:16→20:19)
[2022-06-25] MEDS: THIAMINE HCL 100 MG TABLET PO (08:16)
[2022-06-25] MEDS: FOLIC ACID 1 MG TABLET PO (08:16)
[2022-06-25] MEDS: HEPARIN SODIUM 5,000 UNITS/ML VIAL 5000 UNITS SUB-Q ×2 (08:17→20:18)
[2022-06-25 12:00] LABS: Glucose Point of Care 56 mg/dl (65-105)
[2022-06-25 12:11] LABS: Glucose Point of Care 80 mg/dl (65-105)
--- NOTE | 2022-06-25 13:41 | P.PNIM_ITS ---
Progress Note: A&P Assessment and Plan (1) Alcohol dependence: Code(s): F10.20 - Alcohol dependence, uncomplicated Status: Acute Assessment and Plan: Counseling once patient is more awake * Social service consult * Alcohol withdrawal protocol * Folic acid 1 mg daily and thiamine 100 mg daily * Lorazepam 2 mg IV push q.4h p.r.n. * Patient with dementia most likely caused by alcohol abuse. Patient only oriented to self. * Patient states that she lives alone. PT and OT assessment recommends placement. * Do not believe it is safe for patient to return home to care for self. * Is believe that patient does not have electricity or running water at home. * CIWA score 4 * Librium 25 mg q6h as needed. 06/25/22 * Librium given early this morning due to increased CIWA * CIWA continues to rise and is at 12 at noon. Will continue to monitor this. (2) Altered mental status: Code(s): R41.82 - Altered mental status, unspecified Status: Acute Assessment and Plan: Multifactorial most likely related to acute metabolic encephalopathy probably related to severe protein calorie malnutrition dehydration chronic alcoholism * No evidence of seizure clinically * MRI of the brain ordered * CT scan of the head no acute intracranial process (3) Severe protein-calorie malnutrition: Code(s): E43 - Unspecified severe protein-calorie malnutrition Status: Acute Assessment and Plan: Patient has history of severe malnutrition. Patient with a BMI of 15.3. Malnutrition most likely due to homelessness. * Associated with cachexia * Dietitian consult * Folic acid, B12, vitamin-D level all within normal limits Time Spent With Patient Time with patient: 25 - 35 minutes Subjective Date/time seen: 06/25/22 13:41 Interval history: Patient doing well. She has no new complaints at this time. Review of Systems Review of Systems: All systems reviewed & are unremarkable except as noted in HPI and below Exam Narrative: GENERAL: Comfortable, no acute distress HENMT: moist mucous membranes EYES: EOM intact b/l NECK: no lymphadenopathy RESPIRATORY: clear to auscultation CARDIO: RRR GI: soft, nontender, bowel sounds present SKIN: no rashes EXTREMITIES: no edema, redness or tenderness NEURO: no tremor noted Objective Data Vital Signs Vital Signs: Vital Signs - 24 hr 06/24/22 14:00 06/24/22 16:00 06/24/22 20:11 Temperature 98.7 F 97.7 F Pulse Rate 90 108 H 74 Respiratory Rate 18 18 Blood Pressure 128/88 133/85 Pulse Oximetry 99 100 Oxygen Delivery 06/25/22 04:25 06/24/22 20:00 06/25/22 00:00 Temperature 98.1 F Pulse Rate 63 73 59 L Respiratory Rate 18 Blood Pressure 134/72 Pulse Oximetry 100 Oxygen Delivery 06/25/22 04:00 06/25/22 08:00 06/25/22 08:00 Temperature Pulse Rate 65 56 L Respiratory Rate 18 Blood Pressure Pulse Oximetry 100 Oxygen Delivery Room Air 06/25/22 12:04 Temperature Pulse Rate 71 Respiratory Rate Blood Pressure Pulse Oximetry Oxygen Delivery Intake/Output Intake/Output
--- NOTE | 2022-06-25 13:41 | PM.IMPN ---
Progress Note: A&P Assessment and Plan (1) Alcohol dependence: Code(s): F10.20 - Alcohol dependence, uncomplicated Status: Acute Assessment and Plan: Counseling once patient is more awake Social service consult Alcohol withdrawal protocol Folic acid 1 mg daily and thiamine 100 mg daily Lorazepam 2 mg IV push q.4h p.r.n. Patient with dementia most likely caused by alcohol abuse. Patient only oriented to self. Patient states that she lives alone. PT and OT assessment recommends placement. Do not believe it is safe for patient to return home to care for self. Is believe that patient does not have electricity or running water at home. CIWA score 4 Librium 25 mg q6h as needed. 06/25/22 Librium given early this morning due to increased CIWA CIWA continues to rise and is at 12 at noon. Will continue to monitor this. (2) Altered mental status: Code(s): R41.82 - Altered mental status, unspecified Status: Acute Assessment and Plan: Multifactorial most likely related to acute metabolic encephalopathy probably related to severe protein calorie malnutrition dehydration chronic alcoholism No evidence of seizure clinically MRI of the brain ordered CT scan of the head no acute intracranial process (3) Severe protein-calorie malnutrition: Code(s): E43 - Unspecified severe protein-calorie malnutrition Status: Acute Assessment and Plan: Patient has history of severe malnutrition. Patient with a BMI of 15.3. Malnutrition most likely due to homelessness. Associated with cachexia Dietitian consult Folic acid, B12, vitamin-D level all within normal limits Time Spent With Patient Time with patient: 25 - 35 minutes Subjective Date/time seen: 06/25/22 13:41 Interval history: Patient doing well. She has no new complaints at this time. Review of Systems Review of Systems: All systems reviewed & are unremarkable except as noted in HPI and below Exam Narrative: GENERAL: Comfortable, no acute distress HENMT: moist mucous membranes EYES: EOM intact b/l NECK: no lymphadenopathy RESPIRATORY: clear to auscultation CARDIO: RRR GI: soft, nontender, bowel sounds present SKIN: no rashes EXTREMITIES: no edema, redness or tenderness NEURO: no tremor noted Objective Data Vital Signs Vital Signs: Vital Signs - 24 hr 06/24/22 14:00 06/24/22 16:00 06/24/22 20:11 Temperature 98.7 F 97.7 F Pulse Rate 90 108 H 74 Respiratory Rate 18 18 Blood Pressure 128/88 133/85 Pulse Oximetry 99 100 Oxygen Delivery 06/25/22 04:25 06/24/22 20:00 06/25/22 00:00 Temperature 98.1 F Pulse Rate 63 73 59 L Respiratory Rate 18 Blood Pressure 134/72 Pulse Oximetry 100 Oxygen Delivery 06/25/22 04:00 06/25/22 08:00 06/25/22 08:00 Temperature Pulse Rate 65 56 L Respiratory Rate 18 Blood Pressure Pulse Oximetry 100 Oxygen Delivery Room Air 06/25/22 12:04 Temperature Pulse Rate 71 Respiratory Rate Blood Pressure Pulse Oximetry Oxygen Delivery Intake/Output Intake/Output: Intake & Output 06/22/22 06/23/22 06/24/22 06/25/22 23:59 23:59 23:59 23:59 Intake Total 2020 880 Output Total 1000 Balance 1020 880 Meds/Results Medications: Active Medications Generic Name Dose Route Start Last Admin Trade Name Freq PRN Reason Stop Dose Admin Hydrocodone Bitart/Acetaminophen 1 tab 06/23/22 19:57 Hydrocodone/Acetaminophen (*Crx) 5-325 Mg Tablet PO Q6H PRN Pain Rated 4-6 Chlordiazepoxide HCl 25 mg 06/24/22 16:07 06/25/22 04:20 Chlordiazepoxide (*Crx) 25 Mg Capsule PO 25 mg Q6HR PRN Administration Alcohol Withdrawal Dextrose 12.5 gm 06/24/22 06:05 Dextrose 50% 25 Gm/50 Ml Syringe IV PUSH PRN PRN Hypoglycemia Protocol Famotidine 20 mg 06/23/22 21:35 06/25/22 08:16 Famotidine 20 Mg Tablet PO 20 mg Q12HR [facility] Administratio
--- NOTE | 2022-06-25 16:51 | PC.NURSE ---
Mental Measurements Teacher spoke with provider Kelley Nichols made aware pt stating she is going to sign out AMA, clarified with provider pt is cognitively able to make that decision. Provider reports she is able to make that decision if pt ultimately refuses to stay
[2022-06-25 18:17] LABS: Glucose Point of Care 128 mg/dl (65-105)
[2022-06-26] VITALS: PULSE 62
[2022-06-26 00:45] LABS: Glucose Point of Care 118 mg/dl (65-105)
[2022-06-26 04:00] VITALS: PULSE 59
[2022-06-26 06:00] VITALS: BP 111/94; PULSE 74; RESP 21; TEMP 36.1; O2SAT 100
[2022-06-26 06:11] LABS: Glucose Point of Care 72 mg/dl (65-105)
[2022-06-26 07:59] VITALS: RESP 20; O2SAT 99
[2022-06-26 08:00] VITALS: PULSE 78
--- NOTE | 2022-06-26 08:44 | PM.DS ---
DS: Admitting Diagnosis Discharge Date 06/25/22 Admitting Diagnosis Confusion, alcoholism DS: Discharge Diagnosis Discharge Diagnosis (1) Alcohol dependence: Code(s): F10.20 - Alcohol dependence, uncomplicated Status: Acute Assessment and Plan: Counseling once patient is more awake Social service consult Alcohol withdrawal protocol Folic acid 1 mg daily and thiamine 100 mg daily Lorazepam 2 mg IV push? q.4h p.r.n. Patient with dementia most likely caused by alcohol abuse.? Patient only oriented to self. Patient states that she lives alone.? PT and OT assessment recommends placement. Do not believe it is safe for patient to return home to care for self. Is believe that patient does not have electricity or running water at home. CIWA score 4 Librium 25 mg q6h as needed. 06/25/22 ?Librium given early this morning due to increased CIWA ?CIWA continues to rise and is at 12 at noon.? Will continue to monitor this. 06/26/22 Patient has not required Ativan for seizure withdrawal during her visit. Although she has had elevated CIWA scores she is presenting at her baseline. I have not noticed any tremors although it is charted in her see what that she has Them. patient at baseline and not requiring any further medical management of alcohol withdrawal. (2) Altered mental status: Code(s): R41.82 - Altered mental status, unspecified Status: Acute Assessment and Plan: Multifactorial most likely related to acute metabolic encephalopathy probably related to severe protein calorie malnutrition dehydration chronic alcoholism No evidence of seizure clinically MRI of the brain unable to be performed CT scan of the head no acute intracranial process Patient has confusion at baseline. Patient likely has brain damage from chronic alcohol abuse. (3) Severe protein-calorie malnutrition: Code(s): E43 - Unspecified severe protein-calorie malnutrition Status: Acute Assessment and Plan: Patient has history of severe? malnutrition.? Patient with a BMI of 15.3.? Malnutrition most likely due to homelessness. Associated with cachexia Dietitian consult and recommended dietary supplementation and increased oral intake. Folic acid, B12, vitamin-D level all within normal limits DS: Summary Hospital Course Reason for hospitalization: Alcoholism, confusion Hospital Course: 67-year-old female presented to the ED on 06/23/2022 with chief complaint of altered mental status. Patient has history of chronic alcoholism with multiple admissions , severe my nutrition and mild dementia at baseline most likely due to chronic alcoholism. patient's current living situation is poor with no access to electricity or running water. Patient was found to have a blood alcohol level of 346. CT head no acute intracranial process. Chest x-ray negative for acute cardiopulmonary process. patient admitted and alcohol withdrawal protocol initiated. Folic acid daily, lorazepam as needed, Librium as needed, and thiamine daily. CIWA scores fluctuated due to patient having mild confusion at baseline. It was reported that patient had tremor but when evaluating patient I personally did not observe any tremor. Is advised the patient be placed in a SNF but patient refused and very adamant about returning home. Patient does not have a power of deputy commonwealth's attorney and was refusing to give contact information for relatives or family. Dietary consulted and recommended increase calorie intake as well as supplementation. Patient did not require any Ativan for withdrawal during this admission. Alcohol consumption cessation was discussed with patient and she verbalized her understanding. patient threatened to leave AMA multiple times. During her last hospital admission patient did leave AMA. The patient is stable and appears to be at baseline. Patient being discharged and will return home. Time Spent with Patient Time attestation: Tot
[2022-06-26 08:45] LABS: Basophils Percent Auto 0.9 % (0.2-1.2); Eosinophils Absolute Auto 0.1 K/mm3 (0-0.3); Eosinophils Percent Auto 2.8 % (0-4.4); Hematocrit 31.4 % (37.0-47.0); Hemoglobin 10.5 g/dL (12.0-15.0); Immature Granulocyte Absolute 0.01 K/mm3 (0.00-0.031); Immature Granulocyte Percent A 0.2 % (0-0.5); Lymphocytes Absolute Auto 1.25 K/mm3 (0.9-3.2); Lymphocytes Percent Auto 29.1 % (18.3-44.2); Mean Corpuscular HGB Conc 33.4 g/dl (32-36); Mean Corpuscular Hemoglobin 31.4 pg (26-34); Monocytes Absolute Auto 0.4 K/mm3 (0.1-0.6); Monocytes Percent Auto 9.6 % (2.6-8.5); Neutrophils Absolute Auto 2.5 K/mm3 (1.3-6.7); Neutrophils Percent Auto 57.4 % (45.5-73.1); Platelet Count Result 266 k/mm3 (150-375); Red Blood Count 3.34 M/mm3 (4.2-5.4); Red Cell Distribution Width 11.4 % (11.5-14.5); White Blood Count 4.3 K/mm3 (4.5-10.0)
[2022-06-26 09:00] LABS: Alanine Aminotransferase 17 U/L (6-35); Albumin Level 3.5 g/dL (3.5-5.1); Alkaline Phosphatase 44 U/L (38-126); Anion Gap 1 mmol/L (8-16); Aspartate Amino Transferase 26 U/L (14-36); Bilirubin,Total 0.4 mg/dL (0.2-1.3); Blood Urea Nitrogen 8 mg/dL (7-17); Calcium 8.6 mg/dL (8.4-10.2); Carbon Dioxide 29 mmol/L (22-30); Chloride 105 mmol/L (98-107); Estimated CRCL calculation 50 ml/min; Estimated Glomerular Filt Rate > 60; Glucose 87 mg/dL (65-110); Magnesium 1.8 mg/dL (1.6-2.3); Potassium 3.9 mmol/L (3.4-5.0); Sodium 135 mmol/L (137-145)
[2022-06-26] MEDS: FOLIC ACID 1 MG TABLET PO (09:13)
[2022-06-26] MEDS: HEPARIN SODIUM 5,000 UNITS/ML VIAL 5000 UNITS SUB-Q (09:13)
[2022-06-26] MEDS: THIAMINE HCL 100 MG TABLET PO (09:13)
[2022-06-26] MEDS: FAMOTIDINE 20 MG TABLET PO (09:13)
[2022-06-26 12:33] LABS: Glucose Point of Care 101 mg/dl (65-105)
--- NOTE | 2022-06-26 13:28 | PC.NURSE ---
On 06/26/22, the student, [Malik Beach], provided care and completed [facility] documentation on this patient. I have reviewed the student's documentation and agree with the findings.
== END 2022-06-26 13:20 | disposition home or self-care (01) ==
LOC: ANHED 21:16 → ANH2MED 06-24 01:40
PROVIDERS: Emergency Medicine; Admitting Provider Internal Medicine; Emergency Provider Emergency Medicine; PCP Family Medicine; Visit Provider Internal Medicine
DX: F10.20 Alcohol dependence, uncomplicated (principal); Y90.8 Blood alcohol level of 240 mg/100 ml or more; R41.82 Altered mental status, unspecified; E43 Unspecified severe protein-calorie malnutrition; Z68.1 Body mass index [BMI] 19.9 or less, adult; F03.90 Unspecified dementia, unspecified severity, without behavioral disturbance, psychotic disturbance, mood disturbance, and anxiety; Z20.822 Contact with and (suspected) exposure to COVID-19; I25.10 Atherosclerotic heart disease of native coronary artery without angina pectoris; E78.00 Pure hypercholesterolemia, unspecified; I10 Essential (primary) hypertension; F12.90 Cannabis use, unspecified, uncomplicated; N95.9 Unspecified menopausal and perimenopausal disorder; Z66 Do not resuscitate; Z82.49 Family history of ischemic heart disease and other diseases of the circulatory system; Z79.899 Other long term (current) drug therapy
CPT/HCPCS: 36415; 70450; 71045; 80053; 80307; 81003; 82140; 82306; 82550; 82607; 82746; 82948; 83735; 84443; 85025; 85610; 85730; 87636; 96361; 96372; 96374; 96375; 97161; 97165; 99285; A9270; G0378; J1644; J2060; J3411; J3475; J7030

== ENCOUNTER 2022-07-27 19:12 | Inpatient (IN) | payer MEDICARE, SELFPAY ==
--- NOTE | ~2022-07-27 | CT_ITS ---
EXAMINATION: CT brain wo con DATE: 07/27/2022 20:30 INDICATION: ams . TECHNIQUE: Computed tomography (CT) of the head was performed without intravenous contrast. The mA wa s adjusted according to patient size. Iterative reconstruction technique was employed. The dose-lengt h product was 605.33 mGy-cm. COMPARISON: 06/23/2022. FINDINGS: Mild motion artifact. No acute intracranial hemorrhage or extra-axial fluid collection. No hydrocephalus, mass, or herniation. No acute ischemic infarct. Unremarkable dural venous sinus attenuation. No acute osseous abnormality. Trace right mastoid fluid, the remaining aerated spaces are clear. Moderate atrophy and chronic white matter change. Atherosclerotic intracranial calcification. IMPRESSION: No acute intracranial process. Reviewed, dictated and finalized at location K.
[2022-07-27 19:20] VITALS: BP 102/51; PULSE 54; RESP 13; TEMP 36.4; O2SAT 100
[2022-07-27 19:21] VITALS: BP 102/51; PULSE 58; RESP 9
[2022-07-27 19:30] VITALS: BP 88/57; PULSE 52; RESP 16
[2022-07-27 19:45] VITALS: BP 101/48; PULSE 64; RESP 16
--- NOTE | 2022-07-27 20:15 | ED.ALCOHOL ---
HPI - Alcohol General Chief Complaint: Alcohol <Felicitas Navarro MD - Last Filed: 08/22/22 15:57> Stated Complaint: etoh <Felicitas Navarro MD - Last Filed: 08/22/22 15:57> Time Seen by Provider: 07/27/22 19:47 <Felicitas Navarro MD - Last Filed: 08/22/22 15:57> History of Present Illness HPI narrative: Patient is a 67-year-old female with a history of alcohol use disorder presenting with alcohol intoxication. Patient was found wandering in front of a local grocery store by local police. She was confused and unable to answer any questions so they brought her in for evaluation. She states that she has had several bottles of wine today. Currently, the patient denies any complaints. She states she does not know why she is here and she would like to go home. She is A&O x1. <Felicitas Navarro MD - Last Filed: 08/22/22 15:57> Related Data Home Medications: Home Medications Medication Instructions Recorded Confirmed atorvastatin 20 mg tablet 20 mg PO DAILY 08/30/19 07/28/22 metoprolol tartrate 25 mg tablet 12.5 mg PO DAILY 08/30/19 07/28/22 <Felicitas Navarro MD - Last Filed: 08/22/22 15:57> Allergies/Adverse Reactions: Allergies Allergy/AdvReac Type Severity Reaction Status Date / Time poliomyelitis vaccine, live Allergy Unknown Rash Verified 08/28/18 17:17 oral <Felicitas Navarro MD - Last Filed: 08/22/22 15:57> Review of Systems Review of Systems: All systems reviewed & are unremarkable except as noted in HPI and below <Felicitas Navarro MD - Last Filed: 08/22/22 15:57> PMFSH Past Medical History Medical History: Medical History BMI less than 19,adult Coronary artery disease Hypercholesteremia Hypertension Marijuana use Multiple fractures of ribs of both sides Postmenopausal <Felicitas Navarro MD - Last Filed: 08/22/22 15:57> Surgical History Surgical History: Surgical History No pertinent past surgical history <Felicitas Navarro MD - Last Filed: 08/22/22 15:57> Family History Family History: Family History Other Cancer Cerebrovascular accident Heart disease Hypertension <Felicitas Navarro MD - Last Filed: 08/22/22 15:57> Social History Social History: Social History Social History: 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 She does not have a person that she would want make her decisions. She states that she does not have her sister's contact information on her as she does not have her cellphone. She states that she lives alone but her significant other visits her. Code status full code Smoking status: Never smoker Second hand tobacco smoke exposure: No Alcohol intake: current Drinks per week: 30 Alcohol use details: Bottle 1/day Substance use: current Substance use type: marijuana and heroin Last use: COUPLE DAYS AGO Lack of Transportation: YES Lack of Food: Sometimes True Current Housing: I Have Housing Concerned About Future Housing: No Difficulty Paying Gas/Electric Bills: YES Difficulty Paying for Meds: YES Currently Unemployed: No Education: Associate Degree Difficulty w/ Childcare or Family Care: No Gender identity (if verbalized by the patient): Female Spiritual care concerns: No <Felicitas Navarro MD - Last Filed: 08/22/22 15:57> Exam Narrative: GENERAL: Cachectic female laying in bed in no acute distress HEAD: Normocephalic, atraumatic. EYES: PERRLA and EOMI. ENT: Nares clear, no rhinorrhea or epistaxis. Mucous membranes dry. Smells of EtOH. NECK: Supple. CHEST: Clear to auscultation. No respiratory distress. HEART: Regular rate and rhythm ABDOMEN: Soft, nontender, nondistended
[2022-07-27] MEDS: HALOPERIDOL LACTATE 5 MG/ML VIAL 10 MG IM (21:31)
[2022-07-27] MEDS: LORazepam INJ (*CRX) 2 MG/ML VIAL IV PUSH (22:10)
[2022-07-27 22:15] LABS: Hematocrit 32.5 % (37.0-47.0); Hemoglobin 11.2 g/dL (12.0-15.0); Immature Granulocyte Absolute 0.01 K/mm3 (0.00-0.031); Immature Granulocyte Percent A 0.2 % (0-0.5); Lymphocytes Absolute Auto 1.42 K/mm3 (0.9-3.2); Lymphocytes Percent Auto 33.8 % (18.3-44.2); Mean Corpuscular HGB Conc 34.5 g/dl (32-36); Mean Corpuscular Hemoglobin 32.4 pg (26-34); Mean Corpuscular Volume 93.9 fl (80-100); Mean Platelet Volume 10.1 fl (7.4-10.4); Monocytes Absolute Auto 0.3 K/mm3 (0.1-0.6); Neutrophils Absolute Auto 2.4 K/mm3 (1.3-6.7); Platelet Count Result 261 k/mm3 (150-375); Red Blood Count 3.46 M/mm3 (4.2-5.4); Red Cell Distribution Width 12.3 % (11.5-14.5); White Blood Count 4.2 K/mm3 (4.5-10.0)
[2022-07-27 22:25] LABS: Alanine Aminotransferase 16 U/L (6-35); Albumin Level 4.2 g/dL (3.5-5.1); Alkaline Phosphatase 32 U/L (38-126); Anion Gap 9 mmol/L (8-16); Aspartate Amino Transferase 36 U/L (14-36); Bilirubin,Total 0.6 mg/dL (0.2-1.3); Blood Urea Nitrogen 11 mg/dL (7-17); Calcium 8.7 mg/dL (8.4-10.2); Carbon Dioxide 26 mmol/L (22-30); Chloride 102 mmol/L (98-107); Estimated Glomerular Filt Rate > 60; Glucose 111 mg/dL (65-110); Lipase 103 U/L (23-300); Potassium 3.8 mmol/L (3.4-5.0); Sodium 137 mmol/L (137-145)
[2022-07-27 22:35] LABS: Ethanol 300 mg/dL (<10)
--- NOTE | 2022-07-28 04:30 | PC.NURSE ---
2225- Pt being not cooperative and combative. D/C iv at 2225.
[2022-07-28 07:54] VITALS: BP 110/75; PULSE 97; RESP 18; O2SAT 99
[2022-07-28] MEDS: LACTATED RINGERS 1,000 ML 999 ML IV CONT (07:58)
[2022-07-28 08:38] LABS: Ethanol 57 mg/dL (<10)
[2022-07-28 08:40] LABS: Add Urine Microscopic? NO; Appearance Urine Clear (Clear); Bilirubin Urine Negative (Negative); Blood Urine Negative (Negative); Color Urine Yellow (Yellow); Glucose Urine UA Negative (Negative); Ketones Urine Negative (Negative); Leukocyte Esterase Ur Negative LEU/UL (Negative); Nitrate Urine Negative (Negative); Protein Urine Negative (Negative); Specific Grav Ur 1.008 (1.001-1.035); Urobilinogen Urine 0.2 mg/dL (<2.0)
[2022-07-28 09:29] VITALS: BP 123/78; PULSE 78; RESP 18; O2SAT 99
--- NOTE | 2022-07-28 09:38 | PC.NURSE ---
Care Coordination notified for consult for patient as she reported she has no heat at her home. Pt is still altered and unable to answer questions appropriately.
[2022-07-28 11:06] VITALS: BP 126/79; PULSE 73; RESP 16
[2022-07-28 11:45] VITALS: BP 122/78; PULSE 75; RESP 18; TEMP 36.9; O2SAT 99
--- NOTE | 2022-07-28 11:51 | ADMGEN ---
This patient, Paula Valdez, was admitted to 3 [facility] Surg Room 317-01. Patient/family oriented to hospital policies and general routines including ID bracelet, bed and alarms, visiting hours, pain management, procedures, bathroom and other care routines, personal items, smoking policy, room service/diet, and visiting hours. Information on how to activate the Rapid Response Team has been discussed. Patient/Family are encouraged to report perceived risks to care and to ask questions if they do not understand what they are told or what they should do.
[2022-07-28 13:26] VITALS: BMI 14.6
[2022-07-28 14:00] VITALS: BP 115/79; PULSE 87; RESP 18; TEMP 36.2; O2SAT 98
--- NOTE | 2022-07-28 15:26 | PM.IMHP ---
H&P: HPI History of Present Illness Date/Time: 07/28/22 15:26 Chief Complaint: Altered mental status Narrative: This is a 67-year-old female patient who has a history of alcohol abuse. The patient presented to the emergency room with alcohol intoxication. The patient was found wandering in frontal local grocery store by the local police officers. She was confused and was not able to answer the questions. They brought her into the emergency room for evaluation. The patient stated that she had several bottles of wine today. The patient was unsure of what happened or why she is here and wants to go home. Patient's H&H 11.2 and 32.5. This is her baseline. Urine was negative for nitrates and negative for leukocyte esterase. WBCs were too numerous to project. Also urine bacteria was financial services intern. Her initial alcohol level was 300 and then 57. The patient is answering some questions but is not offering much information. Head CT was read as no acute intracranial process. The patient is being admitted to observation status on the date of service of 07/28/2022 Review of Systems Review of Systems: All systems reviewed & are unremarkable except as noted in HPI and below Constitutional: Constitutional: Reports as per HPI and Reports no additional constitutional complaints Eyes: Eyes: Reports as per HPI and Reports no additional eye complaints ENT: Reports system reviewed and no additional complaints, except as documented and Reports Normal hearing present Cardiovascular: Cardiovascular: Reports no additional cardiovascular complaints Respiratory: Respiratory: Reports no additional respiratory complaints and Reports no additional respiratory complaints Gastrointestinal: Gastrointestinal: Reports as per HPI and Reports no additional gastrointestinal complaints Musculoskeletal: Musculoskeletal: Reports no additional musculoskeletal complaints Integumentary/Breasts: Skin/Breast: Reports system reviewed and no additional complaints, except as docu and Reports as per HPI Neurologic: Reports system reviewed and no additional complaints, except as documented, Reports as per HPI and Reports Normal hearing present Psychiatric: Psychiatric: Reports no additional psychiatric complaints and Reports as per HPI Endocrine: Endocrine: Reports no additional endocrine complaints Hematologic/Lymphatic: Hematologic/Lymphatic: Reports no additional hematologic/lymphatic complaints Allergic/Immunologic: Allergic/Immunologic: Reports no additional allergic/immunologic complaints [facility] Past Medical History Medical History BMI less than 19,adult Coronary artery disease Hypercholesteremia Hypertension Marijuana use Multiple fractures of ribs of both sides Postmenopausal Surgical History Surgical History No pertinent past surgical history Family History Family History Other Cancer Cerebrovascular accident Heart disease Hypertension Social History Social History (Updated 07/28/22 @ 15:56 by Susu Puente NP) Social History: 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 She does not have a person that she would want make her decisions. She states that she does not have her sister's contact information on her as she does not have her cellphone. She states that she lives alone but her significant other visits her. Code status full code Smoking status: Never smoker Second hand tobacco smoke exposure: No Alcohol intake: current Drinks per week: 30 Alcohol use details: Bottle 1/day Substance use: current Substance use type: marijuana and heroin Last use: COUPLE DAYS AGO Lack of Transportation: YES Lack of Food: Sometimes True Current Housing: I Have Housing Concerned About Future Housing: No
[2022-07-28] MEDS: chlordiazePOXIDE (*CRX) 25 MG CAPSULE 50 MG PO ×2 (17:36→23:05)
[2022-07-28 20:59] VITALS: BP 96/70; PULSE 74; RESP 16; TEMP 36.6; O2SAT 100
[2022-07-28 21:33] LABS: Amphetamine Screen Urine Negative (Negative); Barbiturate Screen Urine Negative (Negative); Benzodiazepines Screen Urine Negative (Negative); Cannabinoid Screen Urine Negative (Negative); Cocaine Screen Urine Negative (Negative); Methadone Screen Urine Negative (Negative); Opiate Screen Urine Negative (Negative); Phencyclidine Screen Urine Negative (Negative)
[2022-07-29 00:02] LABS: Glucose Point of Care 99 mg/dl (65-105)
[2022-07-29] MEDS: chlordiazePOXIDE (*CRX) 25 MG CAPSULE 50 MG PO ×4 (05:11→23:01)
[2022-07-29 06:00] VITALS: BP 92/62; PULSE 56; RESP 16; TEMP 35.9; O2SAT 99
[2022-07-29 06:21] LABS: Glucose Point of Care 95 mg/dl (65-105)
[2022-07-29 06:37] LABS: Basophils Percent Auto 0.5 % (0.2-1.2); Eosinophils Absolute Auto 0.1 K/mm3 (0-0.3); Eosinophils Percent Auto 1.9 % (0-4.4); Hematocrit 33.2 % (37.0-47.0); Hemoglobin 10.8 g/dL (12.0-15.0); Immature Granulocyte Absolute 0.02 K/mm3 (0.00-0.031); Immature Granulocyte Percent A 0.3 % (0-0.5); Lymphocytes Absolute Auto 1.52 K/mm3 (0.9-3.2); Lymphocytes Percent Auto 20.3 % (18.3-44.2); Mean Corpuscular HGB Conc 32.5 g/dl (32-36); Mean Corpuscular Hemoglobin 32.5 pg (26-34); Mean Platelet Volume 10.2 fl (7.4-10.4); Monocytes Absolute Auto 0.7 K/mm3 (0.1-0.6); Monocytes Percent Auto 8.7 % (2.6-8.5); Neutrophils Absolute Auto 5.1 K/mm3 (1.3-6.7); Neutrophils Percent Auto 68.3 % (45.5-73.1); Platelet Count Result 229 k/mm3 (150-375); Red Blood Count 3.32 M/mm3 (4.2-5.4); Red Cell Distribution Width 12.5 % (11.5-14.5); White Blood Count 7.5 K/mm3 (4.5-10.0)
[2022-07-29 06:46] LABS: Lactic Acid Reflex 0.8 mmol/L (0.7-2.0)
[2022-07-29 06:51] LABS: Alanine Aminotransferase 15 U/L (6-35); Albumin Level 3.7 g/dL (3.5-5.1); Alkaline Phosphatase 43 U/L (38-126); Anion Gap 0 mmol/L (8-16); Aspartate Amino Transferase 30 U/L (14-36); Bilirubin,Total 0.9 mg/dL (0.2-1.3); Blood Urea Nitrogen 9 mg/dL (7-17); Carbon Dioxide 30 mmol/L (22-30); Chloride 106 mmol/L (98-107); Estimated CRCL calculation 58 ml/min; Estimated Glomerular Filt Rate > 60; Glucose 88 mg/dL (65-110); Magnesium 1.9 mg/dL (1.6-2.3); Potassium 3.6 mmol/L (3.4-5.0); Sodium 136 mmol/L (137-145)
[2022-07-29] MEDS: MULTIVIT/MIN/PREN/FOL AC/IRON TABLET 1 TAB PO (09:15)
[2022-07-29] MEDS: ATORVASTATIN 20 MG TABLET PO (09:15)
[2022-07-29] MEDS: FOLIC ACID 1 MG/0.2 ML INJ IV PUSH (09:16)
[2022-07-29] MEDS: THIAMINE HCL 200 MG/2 ML VIAL 100 MG IV PUSH (09:16)
[2022-07-29 11:47] LABS: Glucose Point of Care 85 mg/dl (65-105)
--- NOTE | 2022-07-29 12:03 | PM.IMPN ---
Progress Note: A&P Assessment and Plan (1) Altered mental status: Code(s): R41.82 - Altered mental status, unspecified Status: Acute Assessment and Plan: The patient was found today outside of a grocery store and was confused. The patient was not able to answer questions at that time. pt still remains confused today. (2) Alcoholic intoxication: Code(s): F10.929 - Alcohol use, unspecified with intoxication, unspecified Status: Acute Assessment and Plan: Continue to monitor CIWA scores, watch for DTs P.r.n. added Routine Librium Folic acid and thiamin daily (3) Severe protein-calorie malnutrition: Code(s): E43 - Unspecified severe protein-calorie malnutrition Status: Acute Assessment and Plan: The patient is only 34 kg. Patient drinks 1-2 bottles of wine a day. add ensures to diet Plan ? about home situation may be homeless Subjective Date/time seen: 07/29/22 12:03 67-year-old female patient who has a history of alcohol abuse.? The patient presented to the emergency room with alcohol intoxication.? The patient was found wandering in frontal local grocery store by the local police officers.? She was confused and was not able to answer the questions.? They brought her into the emergency room for evaluation.? Admitted for AMS and history of alcohol abuse Pt remains disoriented today oriented x1 no signs of tremors yet but still remains very confused Exam Resp: Effort & Inspection: normal respiratory effort Auscultation: diminished lung sounds Cardio: Palpation: normal PMI Rate: regular rate Rhythm: regular rhythm Heart sounds: S1 normal heart sound present and S2 normal heart sound present Peripheral pulses: Peripheral pulses 2+ throughout GI: Inspection: normal to inspection Auscultation: normal bowel sounds Rectal Exam: deferred Back/Spine/Pelvis: Cervical Spine: cervical ROM normal Skin: General skin exam: normal color Lesions: no lesions Rashes: no rashes Trauma: no lacerations or abrasions Wounds: no wounds Hair: normal Nails: normal Other: Unkempt Neuro: General: oriented to person and oriented to place Cranial nerves: Yes Equal, round and reactive pupils present and Yes Normal hearing present Cognition (Neuro): normal cognition Speech: normal speech Motor exam (neuro): 5/5 motor strength present throughout Sensory Exam: normal sensation Extrem: General: normal to inspection Right upper extremity: normal to inspection and shoulder/upper arm Left upper extremity: normal to inspection and shoulder/upper arm Right lower extremity: normal to inspection Left lower extremity: normal to inspection Objective Data Vital Signs Vital Signs: Vital Signs - 24 hr 07/28/22 14:00 07/28/22 20:59 07/28/22 20:00 Temperature 36.2 C L 36.6 C Pulse Rate 87 74 Respiratory Rate 18 16 Blood Pressure 115/79 96/70 L Pulse Oximetry 98 100 Oxygen Delivery Room Air 07/29/22 06:00 Temperature 35.9 C L Pulse Rate 56 L Respiratory Rate 16 Blood Pressure 92/62 L Pulse Oximetry 99 Oxygen Delivery Intake/Output Intake/Output: Intake & Output 07/26/22 07/27/22 07/28/22 07/29/22 23:59 23:59 23:59 23:59 Intake Total 100 1120 100 Balance 100 1120 100 Meds/Results Medications: Active Medications Generic Name Dose Route Start Last Admin Trade Name Freq PRN Reason Stop Dose Admin Atorvastatin Calcium 20 mg 07/29/22 09:00 07/29/22 09:15 Atorvastatin 20 Mg Tablet PO 20 mg DAILY CURTIS Administration Chlordiazepoxide HCl 50 mg 07/28/22 18:00 07/29/22 11:31 Chlordiazepoxide (*Crx) 25 Mg Capsule PO 50 mg Q6HR CURTIS Administration Folic Acid 1 mg 07/29/22 09:00 07/29/22 09:16 Folic Acid 1 Mg/0.2 Ml Inj IV PUSH 1 mg QAM CURTIS Administration Haloperidol Lactate 2 mg 07/28/22 15:44 Haloperidol Lactate 5 Mg/Ml Vial IV PUSH Q2H PRN Delirium Lorazepam 2 mg 07/28/22 15:44 Lorazepam I
[2022-07-29 14:00] VITALS: BP 107/69; PULSE 75; RESP 14; TEMP 36; O2SAT 100
[2022-07-29] MEDS: LORazepam INJ (*CRX) 2 MG/ML VIAL IV PUSH (16:40)
[2022-07-29 22:00] VITALS: BP 143/79; PULSE 61; RESP 16; TEMP 35.9; O2SAT 100
[2022-07-29 23:37] LABS: Glucose Point of Care 77 mg/dl (65-105)
[2022-07-30] MEDS: chlordiazePOXIDE (*CRX) 25 MG CAPSULE 50 MG PO (05:37)
[2022-07-30 06:00] VITALS: BP 135/81; PULSE 55; RESP 16; TEMP 35.9; O2SAT 100
[2022-07-30 06:00] LABS: Glucose Point of Care 100 mg/dl (65-105)
[2022-07-30 06:40] LABS: Hematocrit 35.2 % (37.0-47.0); Hemoglobin 11.7 g/dL (12.0-15.0); Mean Corpuscular HGB Conc 33.2 g/dl (32-36); Mean Corpuscular Hemoglobin 31.7 pg (26-34); Mean Corpuscular Volume 95.4 fl (80-100); Platelet Count Result 240 k/mm3 (150-375); Red Blood Count 3.69 M/mm3 (4.2-5.4); Red Cell Distribution Width 12.1 % (11.5-14.5); White Blood Count 5.6 K/mm3 (4.5-10.0)
[2022-07-30 06:56] LABS: Anion Gap -1 mmol/L (8-16); Blood Urea Nitrogen 9 mg/dL (7-17); Calcium 8.9 mg/dL (8.4-10.2); Carbon Dioxide 32 mmol/L (22-30); Chloride 106 mmol/L (98-107); Estimated CRCL calculation 58 ml/min; Estimated Glomerular Filt Rate > 60; Glucose 93 mg/dL (65-110); Potassium 3.4 mmol/L (3.4-5.0); Sodium 137 mmol/L (137-145)
[2022-07-30 09:28] VITALS: O2SAT 98
[2022-07-30 09:35] VITALS: BP 108/83; PULSE 60
[2022-07-30] MEDS: THIAMINE HCL 200 MG/2 ML VIAL 100 MG IV PUSH (09:37)
[2022-07-30] MEDS: MULTIVIT/MIN/PREN/FOL AC/IRON TABLET 1 TAB PO (09:37)
[2022-07-30] MEDS: ATORVASTATIN 20 MG TABLET PO (09:37)
[2022-07-30] MEDS: FOLIC ACID 1 MG/0.2 ML INJ IV PUSH (09:38)
[2022-07-30 11:57] LABS: Glucose Point of Care 84 mg/dl (65-105)
[2022-07-30 12:00] VITALS: BP 116/70; PULSE 68; RESP 18; TEMP 36.2; O2SAT 100
--- NOTE | 2022-07-30 14:13 | PM.IMPN ---
Progress Note: A&P Assessment and Plan (1) Altered mental status: Code(s): R41.82 - Altered mental status, unspecified Status: Acute Assessment and Plan: The patient was found today outside of a grocery store and was confused. The patient was not able to answer questions at that time. Alcohol level 300 on presentation currently slightly hypoactive delirium. Will chlordiazepoxide and lower lorazepam p.r.n. dosing. Continue thiamine supplementation and CIWA protocol (2) Alcoholic intoxication: Code(s): F10.929 - Alcohol use, unspecified with intoxication, unspecified Status: Acute Assessment and Plan: Continue to monitor CIWA scores, watch for DTs P.r.n. added Routine Librium Folic acid and thiamin daily (3) Severe protein-calorie malnutrition: Code(s): E43 - Unspecified severe protein-calorie malnutrition Status: Acute Assessment and Plan: The patient is only 34 kg. Patient drinks 1-2 bottles of wine a day. add ensures to diet Plan PT OT to see Subjective Date/time seen: 07/30/22 14:13 Interval history: This is a 67-year-old female patient who has a history of alcohol abuse.? The patient presented to the emergency room with alcohol intoxication.? The patient was found wandering in frontal local grocery store by the local police officers.? She was confused and was not able to answer the questions.? They brought her into the emergency room for evaluation.? The patient stated that she had several bottles of wine today.? The patient was unsure of what happened or why she is here and wants to go home.? Patient's H&H 11.2 and 32.5.? This is her baseline.? Urine was negative for nitrates and negative for leukocyte esterase.? WBCs were too numerous to project.? 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 Her initial alcohol level was? 300 and then 57.? The patient is answering some questions but is not offering much information.? Head CT was read as no acute intracranial process.? The patient is being admitted to observation status on the date of service of 07/28/2022 07/30/2022:Patient sitting on the chair. Awake very soft voice hard to understand. Follows commands remains confused Review of Systems Review of Systems: All systems reviewed & are unremarkable except as noted in HPI and below Exam Narrative: GENERAL: Cachectic female in no acute distress confused looking HEAD: Normocephalic, atraumatic. EYES: PERRLA and EOMI. ENT: Nares clear, no rhinorrhea or epistaxis.? Mucous membranes dry.? Smells of EtOH. NECK: Supple. CHEST: Clear to auscultation.? No respiratory distress. HEART: Regular rate and rhythm ABDOMEN: Soft, nontender, nondistended EXTREMITIES: Normal range of motion.? No edema. SKIN: Warm, dry, no rash. NEURO: No focal deficits.? Alert and oriented x1. follow some commands PSYCH: Normal mood? Objective Data Vital Signs Vital Signs: Vital Signs - 24 hr 07/29/22 22:00 07/29/22 20:00 07/30/22 06:00 Temperature 96.7 F L 96.7 F L Pulse Rate 61 55 L Respiratory Rate 16 16 Blood Pressure 143/79 H 135/81 Pulse Oximetry 100 100 Oxygen Delivery Room Air 07/30/22 09:28 Temperature Pulse Rate Respiratory Rate Blood Pressure Pulse Oximetry 98 Oxygen Delivery Room Air Intake/Output Intake/Output: Intake & Output 07/27/22 07/28/22 07/29/22 07/30/22 23:59 23:59 23:59 23:59 Intake Total 100 1120 100 60 Balance 100 1120 100 60 Meds/Results Medications: Active Medications Generic Name Dose Route Start Last Admin Trade Name Freq PRN Reason Stop Dose Admin Atorvastatin Calcium 20 mg 07/29/22 09:00 07/30/22 09:37 Atorvastatin 20 Mg Tablet PO 20 mg DAILY CURTIS Administration Chlordiazepoxide HCl 50 mg 07/28/22 18:00 07/30/22 12:21 Chlordiazepoxide (*Crx) 25 Mg Capsule PO Not Given Q6HR CURTIS Folic Acid 1 mg 07/29/22 09:00 07/30/22 09:38 Folic Acid 1 Mg/0.2 Ml Inj IV PUSH 1 mg QAM CURTIS Administration H
[2022-07-30 16:00] VITALS: BP 128/81; PULSE 78; RESP 20; TEMP 36.1; O2SAT 100
[2022-07-30 18:23] LABS: Glucose Point of Care 94 mg/dl (65-105)
[2022-07-30 20:00] VITALS: BP 133/78; PULSE 72; RESP 14; TEMP 36.9; O2SAT 91
[2022-07-30 23:24] LABS: Glucose Point of Care 83 mg/dl (65-105)
[2022-07-31] VITALS: BP 133/71; PULSE 74; RESP 16; TEMP 36.9; O2SAT 98
[2022-07-31 04:00] VITALS: BP 130/72; PULSE 104; RESP 14; TEMP 36.7; O2SAT 97
[2022-07-31 06:05] LABS: Glucose Point of Care 114 mg/dl (65-105)
[2022-07-31 06:31] LABS: Basophils Absolute Auto 0.1 K/mm3 (0.0-0.1); Eosinophils Absolute Auto 0.2 K/mm3 (0-0.3); Eosinophils Percent Auto 3.2 % (0-4.4); Hematocrit 38.2 % (37.0-47.0); Hemoglobin 12.6 g/dL (12.0-15.0); Immature Granulocyte Absolute 0.02 K/mm3 (0.00-0.031); Immature Granulocyte Percent A 0.3 % (0-0.5); Lymphocytes Absolute Auto 1.23 K/mm3 (0.9-3.2); Lymphocytes Percent Auto 19.8 % (18.3-44.2); Mean Corpuscular Hemoglobin 32.5 pg (26-34); Mean Corpuscular Volume 98.5 fl (80-100); Mean Platelet Volume 10.1 fl (7.4-10.4); Monocytes Absolute Auto 0.7 K/mm3 (0.1-0.6); Monocytes Percent Auto 11.3 % (2.6-8.5); Neutrophils Percent Auto 64.4 % (45.5-73.1); Platelet Count Result 266 k/mm3 (150-375); Red Blood Count 3.88 M/mm3 (4.2-5.4); Red Cell Distribution Width 12.2 % (11.5-14.5); White Blood Count 6.2 K/mm3 (4.5-10.0)
[2022-07-31 06:47] LABS: Alanine Aminotransferase 16 U/L (6-35); Albumin Level 3.8 g/dL (3.5-5.1); Alkaline Phosphatase 43 U/L (38-126); Anion Gap 3 mmol/L (8-16); Aspartate Amino Transferase 26 U/L (14-36); Bilirubin,Total 0.5 mg/dL (0.2-1.3); Blood Urea Nitrogen 11 mg/dL (7-17); Calcium 9.1 mg/dL (8.4-10.2); Carbon Dioxide 28 mmol/L (22-30); Chloride 105 mmol/L (98-107); Estimated CRCL calculation 58 ml/min; Estimated Glomerular Filt Rate > 60; Glucose 106 mg/dL (65-110); Magnesium 1.7 mg/dL (1.6-2.3); Potassium 3.5 mmol/L (3.4-5.0); Sodium 136 mmol/L (137-145)
[2022-07-31 08:28] VITALS: BP 118/69; PULSE 65; RESP 16; TEMP 36.1; O2SAT 100
--- NOTE | 2022-07-31 10:19 | PCNFU ---
Nutrition Follow-Up Complete: Moderate malnutrition related to inadequate protein intake and lack of nutrient dense foods with ETOH intake as evidenced by less than 75% of energy needs for greater than 1 month, muscle wasting of the temporalis and subcutaneous fat loss of the orbital pad, noted a low BMI of 14.6, and social history. Goal:PO intake to remain 75% or greater for meals pt not meeting goal. continue with current goal. Pt current nutrition is Regular, Ensure compact TID. Nutrition recommendation: Continue with current plan of care. Last recorded weight is 34 kg. Bowel Motility: no BM recorded at this time Labs Reviewed: NA:136, Cr: 0.4 Meds Noted: folic acid, zofran, thiamin Skin: WNL Additional Notes: Pt continues on a regular diet, confused and refused the last few meals. continue to encourage po intake of meals, supplements, use supplements for med passes as well. Monitor intake, wt, labs. Follow up in 5 days.
[2022-07-31 12:04] LABS: Glucose Point of Care 59 mg/dl (65-105)
[2022-07-31 12:22] VITALS: BP 123/80; PULSE 83; RESP 16; TEMP 36.2; O2SAT 100
[2022-07-31] MEDS: GLUCOSE ORAL GEL 15 GM OF GLUCSE IN 37.5 GM TUBE (12:24)
[2022-07-31 12:40] LABS: Glucose Point of Care 167 mg/dl (65-105)
--- NOTE | 2022-07-31 14:06 | PM.IMPN ---
Progress Note: A&P Assessment and Plan (1) Altered mental status: Code(s): R41.82 - Altered mental status, unspecified Status: Acute Assessment and Plan: The patient was found today outside of a grocery store and was confused. The patient was not able to answer questions at that time. Alcohol level 300 on presentation currently slightly hypoactive delirium. Will chlordiazepoxide and lower lorazepam p.r.n. dosing. Continue thiamine supplementation and CIWA protocol . Chlordiazepoxide and lorazepam has not received it since yesterday Check ammonia level (2) Alcoholic intoxication: Code(s): F10.929 - Alcohol use, unspecified with intoxication, unspecified Status: Acute Assessment and Plan: Continue to monitor CIWA scores, watch for DTs P.r.n. added Routine Librium Folic acid and thiamin daily (3) Severe protein-calorie malnutrition: Code(s): E43 - Unspecified severe protein-calorie malnutrition Status: Acute Assessment and Plan: The patient is only 34 kg. Patient drinks 1-2 bottles of wine a day. add ensures to diet Plan PT OT to see Subjective Date/time seen: 07/31/22 14:06 Interval history: This is a 67-year-old female patient who has a history of alcohol abuse.? The patient presented to the emergency room with alcohol intoxication.? The patient was found wandering in frontal local grocery store by the local police officers.? She was confused and was not able to answer the questions.? They brought her into the emergency room for evaluation.? The patient stated that she had several bottles of wine today.? The patient was unsure of what happened or why she is here and wants to go home.? Patient's H&H 11.2 and 32.5.? This is her baseline.? Urine was negative for nitrates and negative for leukocyte esterase.? WBCs were too numerous to project.? 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 Her initial alcohol level was? 300 and then 57.? The patient is answering some questions but is not offering much information.? Head CT was read as no acute intracranial process.? The patient is being admitted to observation status on the date of service of 07/28/2022 07/30/2022:Patient sitting on the chair. Awake very soft voice hard to understand. Follows commands remains confused 07/31/2022 no overnight events. Patient awake and alert minimally verbal. Answers questions follows commands Review of Systems Review of Systems: All systems reviewed & are unremarkable except as noted in HPI and below Exam Narrative: GENERAL: Cachectic female in no acute distress confused looking HEAD: Normocephalic, atraumatic. EYES: PERRLA and EOMI. ENT: Nares clear, no rhinorrhea or epistaxis.? Mucous membranes dry.? Smells of EtOH. NECK: Supple. CHEST: Clear to auscultation.? No respiratory distress. HEART: Regular rate and rhythm ABDOMEN: Soft, nontender, nondistended EXTREMITIES: Normal range of motion.? No edema. SKIN: Warm, dry, no rash. NEURO: No focal deficits.? Alert and oriented x2. follow some commands PSYCH: low mood? Objective Data Vital Signs Vital Signs: Vital Signs - 24 hr 07/30/22 16:00 07/30/22 20:00 07/30/22 20:00 Temperature 97.0 F L 98.4 F Pulse Rate 78 72 Respiratory Rate 20 14 Blood Pressure 128/81 133/78 Pulse Oximetry 100 91 Oxygen Delivery Room Air 07/31/22 00:00 07/31/22 04:00 07/31/22 08:28 Temperature 98.4 F 98.1 F 96.9 F L Pulse Rate 74 104 H 65 Respiratory Rate 16 14 16 Blood Pressure 133/71 130/72 118/69 Pulse Oximetry 98 97 100 Oxygen Delivery 07/31/22 08:50 07/31/22 12:22 Temperature 97.2 F L Pulse Rate 83 Respiratory Rate 16 Blood Pressure 123/80 Pulse Oximetry 100 Oxygen Delivery Room Air Intake/Output Intake/Output: Intake & Output 07/28/22 07/29/22 07/30/22 07/31/22 23:59 23:59 23:59 23:59 Intake Total 1120 100 160 0 Balance 1120 100 160 0 Meds/Results Medications: Active Medications Generic Name Dose Ro
--- NOTE | 2022-07-31 14:33 | WPDNEURCNPN ---
Assessment and Plan Assessment and plan (1) Severe protein-calorie malnutrition: Code(s): E43 - Unspecified severe protein-calorie malnutrition Status: Acute (2) Alcohol dependence: Code(s): F10.20 - Alcohol dependence, uncomplicated Status: Acute Plan chronic alcoholism with 2nd nutritional problems in addition to the possibility of underlying neuropathy as well will obtain the EEG in the meantime she is being continued on folic acid 1 mg daily and thiamine 100 mg daily Consult date: 07/31/22 HPI: Paula Valdez is a 67 year old female Has been admitted to [facility] through the emergency room where she was brought with history that she was found wandering in front of her local grocery store by the local police artist she was reportedly confused and unable to answer any question in the emergency room it was documented that she has had several bottles of wine on the day of admission and she was unaware why she was in the emergency room her medications were listed as atorvastatin 20 mg daily and metoprolol 12.5 mg twice a day. She has ongoing history of coronary artery disease with hypercholesterolemia and hypertension in addition to multiple fractures of the ribs a bow size in the past she has history of current alcohol intake alert 30 drinks per week with last use couple of days ago usually 1 bottle per day but she is a never smoker in the emergency room she was noted leakage hectic but without any acute distress her vital signs were with pulse rate of 54 respiration 13 routine labs were normal UA was negative CT scan of the head revealed no acute bleed admitted to the hospital for further observation as mentioned before there was no evidence of epidural or subdural bleed. He had been given the prescription in the past for folic acid 1 mg daily and thiamine 100 mg daily. 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 She does not have a person that she would want make her decisions. She states that she does not have her sister's contact information on her as she does not have her cellphone. She states that she lives alone but her significant other visits her. Code status full code Smoking status: Never smoker Second hand tobacco smoke exposure: No Alcohol intake: current Drinks per week: 30 Alcohol use details: Bottle 1/day Substance use: current Substance use type: marijuana and heroin Last use: COUPLE DAYS AGO Lack of Transportation: YES Lack of Food: Sometimes True Current Housing: I Have Housing Concerned About Future Housing: No Difficulty Paying Gas/Electric Bills: YES Difficulty Paying for Meds: YES Currently Unemployed: No Education: Associate Degree Difficulty w/ Childcare or Family Care: No Gender identity (if verbalized by the patient): Female Spiritual care concerns: No Meds Home Medications and Allergies Home Medications Medication Instructions Recorded Confirmed Type atorvastatin 20 mg tablet 20 mg PO DAILY 08/30/19 07/28/22 History metoprolol tartrate 25 mg tablet 12.5 mg PO DAILY 08/30/19 07/28/22 History prenat.vits,brandy,ezd-hzak-qsuyb 1 tablet PO DAILY #90 tabs 06/11/22 07/28/22 Rx folic acid 1 mg tablet 1 mg PO DAILY #30 tabs 06/26/22 07/28/22 Rx thiamine HCl
[2022-07-31] MEDS: THIAMINE 500 MG/NS 100 ML 500 MG/100 ML BAG 200 MG IVPB (16:00)
[2022-07-31 16:06] LABS: Ammonia < 9 umol/L (9-30)
[2022-07-31 17:13] LABS: Glucose Point of Care 95 mg/dl (65-105)
[2022-07-31 17:46] VITALS: BP 122/82; PULSE 78; RESP 18; TEMP 36.4; O2SAT 100
[2022-07-31 20:00] VITALS: BP 127/88; PULSE 77; RESP 18; TEMP 35.6; O2SAT 100
[2022-07-31] MEDS: THIAMINE 500 MG/NS 100 ML 500 MG/100 ML BAG 125 MG IVPB (21:05)
[2022-07-31 23:47] LABS: Glucose Point of Care 87 mg/dl (65-105)
[2022-08-01] VITALS (8 sets, daily range): BP systolic 112–131; BP diastolic 74–88; PULSE 61–98; RESP 16–18; TEMP 35.6–36.3; O2SAT 93–100
[2022-08-01] MEDS: THIAMINE 500 MG/NS 100 ML 500 MG/100 ML BAG 125 MG IVPB ×2 (05:07→15:09)
[2022-08-01 05:52] LABS: Glucose Point of Care 94 mg/dl (65-105)
[2022-08-01 07:01] LABS: Basophils Absolute Auto 0.1 K/mm3 (0.0-0.1); Basophils Percent Auto 1.2 % (0.2-1.2); Eosinophils Absolute Auto 0.2 K/mm3 (0-0.3); Eosinophils Percent Auto 4.1 % (0-4.4); Hematocrit 38.8 % (37.0-47.0); Hemoglobin 12.4 g/dL (12.0-15.0); Immature Granulocyte Absolute 0.01 K/mm3 (0.00-0.031); Immature Granulocyte Percent A 0.2 % (0-0.5); Mean Corpuscular Hemoglobin 31.7 pg (26-34); Mean Corpuscular Volume 99.2 fl (80-100); Mean Platelet Volume 10.3 fl (7.4-10.4); Monocytes Absolute Auto 0.7 K/mm3 (0.1-0.6); Monocytes Percent Auto 15.7 % (2.6-8.5); Neutrophils Absolute Auto 2.1 K/mm3 (1.3-6.7); Neutrophils Percent Auto 49.8 % (45.5-73.1); Platelet Count Result 252 k/mm3 (150-375); Red Blood Count 3.91 M/mm3 (4.2-5.4); White Blood Count 4.1 K/mm3 (4.5-10.0)
[2022-08-01 07:07] LABS: Alanine Aminotransferase 17 U/L (6-35); Albumin Level 3.9 g/dL (3.5-5.1); Alkaline Phosphatase 47 U/L (38-126); Anion Gap 4 mmol/L (8-16); Aspartate Amino Transferase 32 U/L (14-36); Bilirubin,Total 0.6 mg/dL (0.2-1.3); Blood Urea Nitrogen 11 mg/dL (7-17); Calcium 9.2 mg/dL (8.4-10.2); Carbon Dioxide 26 mmol/L (22-30); Chloride 107 mmol/L (98-107); Estimated CRCL calculation 48 ml/min; Estimated Glomerular Filt Rate > 60; Glucose 74 mg/dL (65-110); Magnesium 1.9 mg/dL (1.6-2.3); Potassium 3.9 mmol/L (3.4-5.0); Sodium 137 mmol/L (137-145)
[2022-08-01] MEDS: MULTIVIT/MIN/PREN/FOL AC/IRON TABLET 1 TAB PO (09:08)
[2022-08-01] MEDS: ATORVASTATIN 20 MG TABLET PO (09:08)
[2022-08-01] MEDS: FOLIC ACID 1 MG/0.2 ML INJ IV PUSH (09:08)
[2022-08-01 12:39] LABS: Glucose Point of Care 128 mg/dl (65-105)
--- NOTE | 2022-08-01 15:39 | PM.IMPN ---
Progress Note: A&P Assessment and Plan (1) Altered mental status: Code(s): R41.82 - Altered mental status, unspecified Status: Acute Assessment and Plan: The patient was found today outside of a grocery store and was confused. The patient was not able to answer questions at that time. Alcohol level 300 on presentation currently slightly hypoactive delirium. Will chlordiazepoxide and lower lorazepam p.r.n. dosing. Continue thiamine supplementation and CIWA protocol . Chlordiazepoxide and lorazepam has not received it since 07/30/2022 Ammonia level low (2) Alcoholic intoxication: Code(s): F10.929 - Alcohol use, unspecified with intoxication, unspecified Status: Acute Assessment and Plan: Continue to monitor CIWA scores, watch for DTs P.r.n. added Routine Librium Folic acid and thiamin daily On high-dose thiamine for possible Wernicke's encephalopathy (3) Severe protein-calorie malnutrition: Code(s): E43 - Unspecified severe protein-calorie malnutrition Status: Acute Assessment and Plan: The patient is only 34 kg. Patient drinks 1-2 bottles of wine a day. add ensures to diet Plan PT OT to see Subjective Date/time seen: 08/01/22 15:39 Interval history: This is a 67-year-old female patient who has a history of alcohol abuse.? The patient presented to the emergency room with alcohol intoxication.? The patient was found wandering in frontal local grocery store by the local police officers.? She was confused and was not able to answer the questions.? They brought her into the emergency room for evaluation.? The patient stated that she had several bottles of wine today.? The patient was unsure of what happened or why she is here and wants to go home.? Patient's H&H 11.2 and 32.5.? This is her baseline.? Urine was negative for nitrates and negative for leukocyte esterase.? WBCs were too numerous to project.? 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 Her initial alcohol level was? 300 and then 57.? The patient is answering some questions but is not offering much information.? Head CT was read as no acute intracranial process.? The patient is being admitted to observation status on the date of service of 07/28/2022 07/30/2022:Patient sitting on the chair. Awake very soft voice hard to understand. Follows commands remains confused 07/31/2022 no overnight events. Patient awake and alert minimally verbal. Answers questions follows commands 08/01/2022: No overnight events . Patient more awake and verbal today. Denies any new complaints. No sees in hospital. Review of Systems Review of Systems: All systems reviewed & are unremarkable except as noted in HPI and below Exam Narrative: GENERAL: Cachectic female in no acute distress confused looking HEAD: Normocephalic, atraumatic. EYES: PERRLA and EOMI. ENT: Nares clear, no rhinorrhea or epistaxis.? Mucous membranes dry.? Smells of EtOH. NECK: Supple. CHEST: Clear to auscultation.? No respiratory distress. HEART: Regular rate and rhythm ABDOMEN: Soft, nontender, nondistended EXTREMITIES: Normal range of motion.? No edema. SKIN: Warm, dry, no rash. NEURO: No focal deficits.? Alert and oriented x2. follow some commands PSYCH: low mood? Objective Data Vital Signs Vital Signs: Vital Signs - 24 hr 07/31/22 17:46 07/31/22 20:00 07/31/22 20:00 Temperature 97.5 F L 96.1 F L Pulse Rate 78 77 Respiratory Rate 18 18 Blood Pressure 122/82 127/88 Pulse Oximetry 100 100 Oxygen Delivery Room Air 08/01/22 00:00 08/01/22 03:15 08/01/22 08:00 Temperature 96.1 F L 96.8 F L 96.5 F L Pulse Rate 77 61 61 Respiratory Rate 18 18 16 Blood Pressure 127/88 130/74 112/77 Pulse Oximetry 100 100 93 Oxygen Delivery 08/01/22 09:05 Temperature Pulse Rate Respiratory Rate Blood Pressure Pulse Oximetry Oxygen Delivery Room Air Intake/Output Intake/Output: Intake & Output 07/29/22 07/30/22 07/31/22 08/01/22
[2022-08-01 17:38] LABS: Glucose Point of Care 101 mg/dl (65-105)
[2022-08-01] MEDS: THIAMINE 500 MG/NS 100 ML 500 MG/100 ML BAG 100 MG IVPB (20:34)
[2022-08-02] VITALS (7 sets, daily range): BP systolic 112–137; BP diastolic 62–82; PULSE 68–82; RESP 14–16; TEMP 36.1–36.7; O2SAT 99–100
[2022-08-02 00:15] LABS: Glucose Point of Care 94 mg/dl (65-105)
[2022-08-02] MEDS: THIAMINE 500 MG/NS 100 ML 500 MG/100 ML BAG 100 MG IVPB ×2 (06:02→21:40)
[2022-08-02 06:55] LABS: Glucose Point of Care 99 mg/dl (65-105)
[2022-08-02 07:14] LABS: Basophils Absolute Auto 0.1 K/mm3 (0.0-0.1); Eosinophils Absolute Auto 0.2 K/mm3 (0-0.3); Hematocrit 35.3 % (37.0-47.0); Hemoglobin 11.5 g/dL (12.0-15.0); Immature Granulocyte Absolute 0.01 K/mm3 (0.00-0.031); Immature Granulocyte Percent A 0.2 % (0-0.5); Lymphocytes Absolute Auto 1.37 K/mm3 (0.9-3.2); Lymphocytes Percent Auto 28.7 % (18.3-44.2); Mean Corpuscular HGB Conc 32.6 g/dl (32-36); Mean Corpuscular Hemoglobin 31.3 pg (26-34); Mean Corpuscular Volume 96.2 fl (80-100); Mean Platelet Volume 10.3 fl (7.4-10.4); Monocytes Absolute Auto 0.7 K/mm3 (0.1-0.6); Monocytes Percent Auto 14.3 % (2.6-8.5); Neutrophils Absolute Auto 2.5 K/mm3 (1.3-6.7); Neutrophils Percent Auto 51.8 % (45.5-73.1); Platelet Count Result 279 k/mm3 (150-375); Red Blood Count 3.67 M/mm3 (4.2-5.4); Red Cell Distribution Width 11.9 % (11.5-14.5); White Blood Count 4.8 K/mm3 (4.5-10.0)
[2022-08-02 07:33] LABS: Alanine Aminotransferase 19 U/L (6-35); Albumin Level 3.7 g/dL (3.5-5.1); Alkaline Phosphatase 31 U/L (38-126); Anion Gap 5 mmol/L (8-16); Aspartate Amino Transferase 44 U/L (14-36); Bilirubin,Total 0.8 mg/dL (0.2-1.3); Blood Urea Nitrogen 15 mg/dL (7-17); Calcium 8.8 mg/dL (8.4-10.2); Carbon Dioxide 26 mmol/L (22-30); Chloride 107 mmol/L (98-107); Estimated CRCL calculation 48 ml/min; Estimated Glomerular Filt Rate > 60; Glucose 87 mg/dL (65-110); Magnesium 1.9 mg/dL (1.6-2.3); Potassium 4.5 mmol/L (3.4-5.0); Sodium 138 mmol/L (137-145)
[2022-08-02] MEDS: FOLIC ACID 1 MG/0.2 ML INJ IV PUSH (10:21)
[2022-08-02] MEDS: MULTIVIT/MIN/PREN/FOL AC/IRON TABLET 1 TAB PO (10:22)
[2022-08-02] MEDS: ATORVASTATIN 20 MG TABLET PO (10:22)
[2022-08-02 11:48] LABS: Glucose Point of Care 111 mg/dl (65-105)
[2022-08-02] MEDS: THIAMINE 500 MG/NS 100 ML 500 MG/100 ML BAG 200 MG IVPB (14:08)
--- NOTE | 2022-08-02 14:43 | PM.IMPN ---
Progress Note: A&P Assessment and Plan (1) Altered mental status: Code(s): R41.82 - Altered mental status, unspecified Status: Acute Assessment and Plan: The patient was found today outside of a grocery store and was confused. The patient was not able to answer questions at that time. Alcohol level 300 on presentation currently slightly hypoactive delirium. Will chlordiazepoxide and lower lorazepam p.r.n. dosing. Continue thiamine supplementation and CIWA protocol . Chlordiazepoxide and lorazepam has not received it since 07/30/2022 Ammonia level low (2) Alcoholic intoxication: Code(s): F10.929 - Alcohol use, unspecified with intoxication, unspecified Status: Acute Assessment and Plan: Continue to monitor CIWA scores, watch for DTs P.r.n. added Routine Librium Folic acid and thiamin daily On high-dose thiamine for possible Wernicke's encephalopathy (3) Severe protein-calorie malnutrition: Code(s): E43 - Unspecified severe protein-calorie malnutrition Status: Acute Assessment and Plan: The patient is only 34 kg. Patient drinks 1-2 bottles of wine a day. add ensures to diet Plan PT OT to see Subjective Date/time seen: 08/02/22 14:43 Interval history: This is a 67-year-old female patient who has a history of alcohol abuse.? The patient presented to the emergency room with alcohol intoxication.? The patient was found wandering in frontal local grocery store by the local police officers.? She was confused and was not able to answer the questions.? They brought her into the emergency room for evaluation.? The patient stated that she had several bottles of wine today.? The patient was unsure of what happened or why she is here and wants to go home.? Patient's H&H 11.2 and 32.5.? This is her baseline.? Urine was negative for nitrates and negative for leukocyte esterase.? WBCs were too numerous to project.? 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 Her initial alcohol level was? 300 and then 57.? The patient is answering some questions but is not offering much information.? Head CT was read as no acute intracranial process.? The patient is being admitted to observation status on the date of service of 07/28/2022 07/30/2022:Patient sitting on the chair. Awake very soft voice hard to understand. Follows commands remains confused 07/31/2022 no overnight events. Patient awake and alert minimally verbal. Answers questions follows commands 08/01/2022: No overnight events . Patient more awake and verbal today. Denies any new complaints. No sees in hospital. 08/02/2022: No overnight events. More positive today. She is alert and awake. She is a bit confused. Stenoses in the hospital. Review of Systems Review of Systems: All systems reviewed & are unremarkable except as noted in HPI and below Exam Narrative: GENERAL: Cachectic female in no acute distress confused looking HEAD: Normocephalic, atraumatic. EYES: PERRLA and EOMI. ENT: Nares clear, no rhinorrhea or epistaxis.? Mucous membranes dry.? Smells of EtOH. NECK: Supple. CHEST: Clear to auscultation.? No respiratory distress. HEART: Regular rate and rhythm ABDOMEN: Soft, nontender, nondistended EXTREMITIES: Normal range of motion.? No edema. SKIN: Warm, dry, no rash. NEURO: No focal deficits.? Alert and oriented x2. follow some commands PSYCH: low mood? Objective Data Vital Signs Vital Signs: Vital Signs - 24 hr 08/01/22 15:54 08/01/22 20:00 08/01/22 20:32 Temperature 96.7 F L 97.2 F L Pulse Rate 98 78 Pulse Rate [Right Monitor] 68 Respiratory Rate 18 18 Blood Pressure 118/76 113/77 Pulse Oximetry 99 100 Oxygen Delivery 08/01/22 23:41 08/02/22 00:00 08/02/22 04:00 Temperature 97.4 F L 97 F L Pulse Rate 74 73 Pulse Rate [Right Monitor] 68 Respiratory Rate 18 16 Blood Pressure 131/77 113/69 Pulse Oximetry 100 100 Oxygen Delivery 08/02/22 04:00 08/02/22 08:05 08/02/22 08:46 T
[2022-08-02 17:00] LABS: Glucose Point of Care 116 mg/dl (65-105)
[2022-08-02] MEDS: ONDANSETRON INJ 4 MG/2 ML VIAL IV PUSH (21:40)
[2022-08-02] MEDS: chlordiazePOXIDE (*CRX) 10 MG CAPSULE PO (21:40)
[2022-08-03] VITALS (8 sets, daily range): BP systolic 92–146; BP diastolic 72–78; PULSE 61–73; RESP 14–18; TEMP 36.4–36.9; O2SAT 98–100
--- NOTE | 2022-08-03 03:15 | PC.NURSE ---
Patient remains confused only alert to self. Continues to hallucinate with seeing and hearing things. Patient believes that she is in someones house and not a hospital. Patient has generalized weakness and unable to stand on her own. Patient is not safe to be discharged home alone or capable of making decisions for herself at this time. Patient continues to go through ETOH withdrawals.
[2022-08-03] MEDS: LORazepam INJ (*CRX) 2 MG/ML VIAL 0.5 MG IV PUSH (05:11)
[2022-08-03] MEDS: THIAMINE 500 MG/NS 100 ML 500 MG/100 ML BAG 100 MG IVPB (05:13)
[2022-08-03 06:01] LABS: Glucose Point of Care 85 mg/dl (65-105)
[2022-08-03] MEDS: FOLIC ACID 1 MG/0.2 ML INJ IV PUSH (10:59)
[2022-08-03] MEDS: MULTIVIT/MIN/PREN/FOL AC/IRON TABLET 1 TAB PO (10:59)
[2022-08-03] MEDS: ATORVASTATIN 20 MG TABLET PO (11:00)
--- NOTE | 2022-08-03 13:21 | PM.IMPN ---
Progress Note: A&P Assessment and Plan (1) Altered mental status: Code(s): R41.82 - Altered mental status, unspecified Status: Acute Assessment and Plan: The patient was found today outside of a grocery store and was confused. The patient was not able to answer questions at that time. Alcohol level 300 on presentation currently slightly hypoactive delirium. Will chlordiazepoxide and lower lorazepam p.r.n. dosing. Continue thiamine supplementation and CIWA protocol . Chlordiazepoxide and lorazepam has not received it since 07/30/2022 Ammonia level low (2) Alcoholic intoxication: Code(s): F10.929 - Alcohol use, unspecified with intoxication, unspecified Status: Acute Assessment and Plan: Continue to monitor CIWA scores, watch for DTs P.r.n. added Routine Librium Folic acid and thiamin daily On high-dose thiamine for possible Wernicke's encephalopathy currently ciwa score is elevated. will schedule librium now. actively hallucinating reported (3) Severe protein-calorie malnutrition: Code(s): E43 - Unspecified severe protein-calorie malnutrition Status: Acute Assessment and Plan: The patient is only 34 kg. Patient drinks 1-2 bottles of wine a day. add ensures to diet Plan PT OT to see needs SNF placement Subjective Date/time seen: 08/03/22 13:21 Interval history: This is a 67-year-old female patient who has a history of alcohol abuse.? The patient presented to the emergency room with alcohol intoxication.? The patient was found wandering in frontal local grocery store by the local police officers.? She was confused and was not able to answer the questions.? They brought her into the emergency room for evaluation.? The patient stated that she had several bottles of wine today.? The patient was unsure of what happened or why she is here and wants to go home.? Patient's H&H 11.2 and 32.5.? This is her baseline.? Urine was negative for nitrates and negative for leukocyte esterase.? WBCs were too numerous to project.? 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 Her initial alcohol level was? 300 and then 57.? The patient is answering some questions but is not offering much information.? Head CT was read as no acute intracranial process.? The patient is being admitted to observation status on the date of service of 07/28/2022 07/30/2022:Patient sitting on the chair. Awake very soft voice hard to understand. Follows commands remains confused 07/31/2022 no overnight events. Patient awake and alert minimally verbal. Answers questions follows commands 08/01/2022: No overnight events . Patient more awake and verbal today. Denies any new complaints. No sees in hospital. 08/02/2022: No overnight events. More positive today. She is alert and awake. She is a bit confused. Stenoses in the hospital. 08/03/2022: Received lorazepam and Librium last night. ciwa score high. friend at bedside; feeding her Review of Systems Review of Systems: All systems reviewed & are unremarkable except as noted in HPI and below Exam Narrative: GENERAL: Cachectic female in no acute distress confused HEAD: Normocephalic, atraumatic. EYES: PERRLA and EOMI. ENT: Nares clear, no rhinorrhea or epistaxis.? Mucous membranes dry.? Smells of EtOH. NECK: Supple. CHEST: Clear to auscultation.? No respiratory distress. HEART: Regular rate and rhythm ABDOMEN: Soft, nontender, nondistended EXTREMITIES: Normal range of motion.? No edema. SKIN: Warm, dry, no rash. NEURO: No focal deficits.? Alert and oriented x2. follow some commands PSYCH: low mood? Objective Data Vital Signs Vital Signs: Vital Signs - 24 hr 08/02/22 16:00 08/02/22 20:00 08/02/22 20:48 Temperature 98.0 F 97.4 F L Pulse Rate 82 68 Pulse Rate [Right Monitor] 68 Respiratory Rate 16 14 Blood Pressure 124/74 112/62 Pulse Oximetry 100 100 Oxygen Delivery 08/03/22 00:00 08/03/22 04:00 08/03/22 08:00 Temperature 97.6 F 97.
[2022-08-03] MEDS: chlordiazePOXIDE (*CRX) 10 MG CAPSULE PO ×2 (14:26→20:20)
--- NOTE | 2022-08-03 14:56 | PCOTNOTE ---
Attempted to see pt for Occupational Therapy treatment. Pt is very lethargic and continues to close her eyes after answering therapist questions. Pt observed to be hallucinating in regards to thinking she is drinking a banana drink when nothing is in her hand. Pt is AxO x2 to name of place and month/day of week. Due to decrease alertness, pt is not appropriate at this time for functional participation in therapy treatment. Will continue per POC duration/frequency tomorrow.
[2022-08-03] MEDS: HALOPERIDOL LACTATE 5 MG/ML VIAL 2 MG IV PUSH (19:00)
[2022-08-03] MEDS: ONDANSETRON INJ 4 MG/2 ML VIAL IV PUSH (20:20)
[2022-08-03 21:52] LABS: Glucose Point of Care 151 mg/dl (65-105)
[2022-08-04] VITALS (7 sets, daily range): BP systolic 92–111; BP diastolic 62–74; PULSE 64–105; RESP 13–16; TEMP 36.1–36.6; O2SAT 95–100
[2022-08-04] MEDS: ATORVASTATIN 20 MG TABLET PO (09:35)
[2022-08-04] MEDS: MULTIVIT/MIN/PREN/FOL AC/IRON TABLET 1 TAB PO (09:35)
[2022-08-04] MEDS: chlordiazePOXIDE (*CRX) 10 MG CAPSULE PO ×2 (09:36→21:38)
[2022-08-04] MEDS: FOLIC ACID 1 MG/0.2 ML INJ IV PUSH (09:36)
[2022-08-04 12:39] LABS: Glucose Point of Care 132 mg/dl (65-105)
--- NOTE | 2022-08-04 15:32 | PM.IMPN ---
Progress Note: A&P Assessment and Plan (1) Altered mental status: Code(s): R41.82 - Altered mental status, unspecified Status: Acute Assessment and Plan: The patient was found today outside of a grocery store and was confused. The patient was not able to answer questions at that time. Alcohol level 300 on presentation currently slightly hypoactive delirium. Will chlordiazepoxide and lower lorazepam p.r.n. dosing. Continue thiamine supplementation and CIWA protocol . Chlordiazepoxide and lorazepam has not received it since 07/30/2022 Ammonia level low On low-dose Librium for alcohol withdrawal (2) Alcoholic intoxication: Code(s): F10.929 - Alcohol use, unspecified with intoxication, unspecified Status: Acute Assessment and Plan: Continue to monitor CIWA scores, watch for DTs P.r.n. added Routine Librium Folic acid and thiamin daily On high-dose thiamine for possible Wernicke's encephalopathy currently ciwa score is elevated. will schedule librium now. actively hallucinating reported however not reported had my evaluation To monitor CIWA On Librium 10 mg q.8 hours (3) Severe protein-calorie malnutrition: Code(s): E43 - Unspecified severe protein-calorie malnutrition Status: Acute Assessment and Plan: The patient is only 34 kg. Patient drinks 1-2 bottles of wine a day. add ensures to diet Plan PT OT to see needs SNF placement Subjective Date/time seen: 08/04/22 15:32 Interval history: This is a 67-year-old female patient who has a history of alcohol abuse.? The patient presented to the emergency room with alcohol intoxication.? The patient was found wandering in frontal local grocery store by the local police officers.? She was confused and was not able to answer the questions.? They brought her into the emergency room for evaluation.? The patient stated that she had several bottles of wine today.? The patient was unsure of what happened or why she is here and wants to go home.? Patient's H&H 11.2 and 32.5.? This is her baseline.? Urine was negative for nitrates and negative for leukocyte esterase.? WBCs were too numerous to project.? Also urine bacteria was air drier.? Her initial alcohol level was? 300 and then 57.? The patient is answering some questions but is not offering much information.? Head CT was read as no acute intracranial process.? The patient is being admitted to observation status on the date of service of 07/28/2022 07/30/2022:Patient sitting on the chair. Awake very soft voice hard to understand. Follows commands remains confused 07/31/2022 no overnight events. Patient awake and alert minimally verbal. Answers questions follows commands 08/01/2022: No overnight events . Patient more awake and verbal today. Denies any new complaints. No sees in hospital. 08/02/2022: No overnight events. More positive today. She is alert and awake. She is a bit confused. Stenoses in the hospital. 08/03/2022: Received lorazepam and Librium last night. ciwa score high. friend at bedside; feeding her 08/04/2022: CIWA score has been very high. Discussed with nursing staff. She is alert and somewhat oriented conversive notes shaky. No hallucination reported or noted Review of Systems Review of Systems: All systems reviewed & are unremarkable except as noted in HPI and below Exam Narrative: GENERAL: Cachectic female in no acute distress confused HEAD: Normocephalic, atraumatic. EYES: PERRLA and EOMI. ENT: Nares clear, no rhinorrhea or epistaxis.? Mucous membranes dry. NECK: Supple. CHEST: Clear to auscultation.? No respiratory distress. HEART: Regular rate and rhythm ABDOMEN: Soft, nontender, nondistended EXTREMITIES: Normal range of motion.? No edema. SKIN: Warm, dry, no rash. NEURO: No focal deficits.? Alert and oriented x2. follow some commands PSYCH: low mood? Objective Data Vital Signs Vital Signs: Vital Signs - 24 hr 08/03/22 16:00
[2022-08-04 18:52] LABS: Glucose Point of Care 126 mg/dl (65-105)
[2022-08-04] MEDS: HALOPERIDOL LACTATE 5 MG/ML VIAL 2 MG IV PUSH (21:38)
[2022-08-04 23:45] LABS: Glucose Point of Care 123 mg/dl (65-105)
[2022-08-05] VITALS (12 sets, daily range): BP systolic 96–124; BP diastolic 50–85; PULSE 64–112; RESP 17–20; TEMP 36–36.6; O2SAT 97–100
[2022-08-05] MEDS: LORazepam INJ (*CRX) 2 MG/ML VIAL 0.5 MG IV PUSH (01:07)
[2022-08-05] MEDS: HALOPERIDOL LACTATE 5 MG/ML VIAL 2 MG IV PUSH ×2 (05:26→21:00)
[2022-08-05 05:53] LABS: Glucose Point of Care 80 mg/dl (65-105)
[2022-08-05 06:33] LABS: Basophils Absolute Auto 0.1 K/mm3 (0.0-0.1); Basophils Percent Auto 0.9 % (0.2-1.2); Eosinophils Absolute Auto 0.2 K/mm3 (0-0.3); Eosinophils Percent Auto 2.9 % (0-4.4); Hematocrit 36.2 % (37.0-47.0); Hemoglobin 11.9 g/dL (12.0-15.0); Immature Granulocyte Absolute 0.01 K/mm3 (0.00-0.031); Immature Granulocyte Percent A 0.2 % (0-0.5); Lymphocytes Absolute Auto 1.87 K/mm3 (0.9-3.2); Lymphocytes Percent Auto 31.8 % (18.3-44.2); Mean Corpuscular HGB Conc 32.9 g/dl (32-36); Mean Corpuscular Hemoglobin 31.9 pg (26-34); Mean Corpuscular Volume 97.1 fl (80-100); Mean Platelet Volume 10.2 fl (7.4-10.4); Monocytes Absolute Auto 0.8 K/mm3 (0.1-0.6); Monocytes Percent Auto 12.8 % (2.6-8.5); Neutrophils Percent Auto 51.4 % (45.5-73.1); Platelet Count Result 282 k/mm3 (150-375); Red Blood Count 3.73 M/mm3 (4.2-5.4); Red Cell Distribution Width 11.9 % (11.5-14.5); White Blood Count 5.9 K/mm3 (4.5-10.0)
[2022-08-05 06:57] LABS: Alanine Aminotransferase 19 U/L (6-35); Albumin Level 4.2 g/dL (3.5-5.1); Alkaline Phosphatase 44 U/L (38-126); Anion Gap 7 mmol/L (8-16); Aspartate Amino Transferase 33 U/L (14-36); Bilirubin,Total 0.4 mg/dL (0.2-1.3); Blood Urea Nitrogen 21 mg/dL (7-17); Calcium 9.2 mg/dL (8.4-10.2); Carbon Dioxide 30 mmol/L (22-30); Chloride 102 mmol/L (98-107); Estimated CRCL calculation 48 ml/min; Estimated Glomerular Filt Rate > 60; Glucose 91 mg/dL (65-110); Magnesium 1.7 mg/dL (1.6-2.3); Sodium 139 mmol/L (137-145)
[2022-08-05] MEDS: MULTIVIT/MIN/PREN/FOL AC/IRON TABLET 1 TAB PO (09:04)
[2022-08-05] MEDS: FOLIC ACID 1 MG/0.2 ML INJ IV PUSH (09:04)
[2022-08-05] MEDS: ATORVASTATIN 20 MG TABLET PO (09:04)
--- NOTE | 2022-08-05 09:18 | PCNFU ---
Nutrition Follow-Up Complete: Moderate malnutrition related to inadequate protein intake and lack of nutrient dense foods with ETOH intake as evidenced by less than 75% of energy needs for greater than 1 month, muscle wasting of the temporalis and subcutaneous fat loss of the orbital pad, noted a low BMI of 14.6, and social history. Goal: PO intake to remain 75% or greater for meals Patient is progressing towards goal. We will continue current goal. Pt current nutrition is Regular with Ensure compact BID Last recorded weight is 34 kg. Bowel Motility: No Bm reported Labs Reviewed:Cr 0.5,Hct 36.2,Hgb 11.9,BUN 21 Meds Noted:Folic Acid, Zofran, Thiamine Skin:WNL Additional Notes: Patient is eating a regular diet. Patient is a slow eater but will finish most meals. Oral Intake has been improving, 75,100% of most meals. Ensure Compact TID provided adding an additional 220 kcals and 9 gms protein. Agree with diet orders. Monitor intake, wt, labs. Follow up in 7 days.
[2022-08-05 11:47] LABS: Glucose Point of Care 89 mg/dl (65-105)
--- NOTE | 2022-08-05 11:54 | PCOTNOTE ---
Attempted OT treatment, patient reports would get up, then when attempting to assist edge of bed patient reports does not want to get up at this time. Rohit blair, RN aware.
[2022-08-05] MEDS: chlordiazePOXIDE (*CRX) 10 MG CAPSULE PO ×2 (15:07→22:01)
--- NOTE | 2022-08-05 15:40 | PM.IMPN ---
Progress Note: A&P Assessment and Plan (1) Altered mental status: Code(s): R41.82 - Altered mental status, unspecified Status: Acute Assessment and Plan: The patient was found today outside of a grocery store and was confused. The patient was not able to answer questions at that time. Alcohol level 300 on presentation currently slightly hypoactive delirium. Will chlordiazepoxide and lower lorazepam p.r.n. dosing. Continue thiamine supplementation and CIWA protocol Chlordiazepoxide and lorazepam has not received it since 07/30/2022 Ammonia level low On low-dose Librium for alcohol withdrawal still on and off agitated (2) Alcoholic intoxication: Code(s): F10.929 - Alcohol use, unspecified with intoxication, unspecified Status: Acute Assessment and Plan: Continue to monitor CIWA scores, watch for DTs P.r.n. added Routine Librium Folic acid and thiamin daily On high-dose thiamine for possible Wernicke's encephalopathy currently ciwa score is elevated. will schedule librium now. actively hallucinating reported however not reported had my evaluation To monitor CIWA On Librium 10 mg q.8 hours (3) Severe protein-calorie malnutrition: Code(s): E43 - Unspecified severe protein-calorie malnutrition Status: Acute Assessment and Plan: The patient is only 34 kg. Patient drinks 1-2 bottles of wine a day. add ensures to diet Plan PT OT to see needs SNF placement Subjective Date/time seen: 08/05/22 15:40 Interval history: This is a 67-year-old female patient who has a history of alcohol abuse.? The patient presented to the emergency room with alcohol intoxication.? The patient was found wandering in frontal local grocery store by the local police officers.? She was confused and was not able to answer the questions.? They brought her into the emergency room for evaluation.? The patient stated that she had several bottles of wine today.? The patient was unsure of what happened or why she is here and wants to go home.? Patient's H&H 11.2 and 32.5.? This is her baseline.? Urine was negative for nitrates and negative for leukocyte esterase.? WBCs were too numerous to project.? 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 Her initial alcohol level was? 300 and then 57.? The patient is answering some questions but is not offering much information.? Head CT was read as no acute intracranial process.? The patient is being admitted to observation status on the date of service of 07/28/2022 07/30/2022:Patient sitting on the chair. Awake very soft voice hard to understand. Follows commands remains confused 07/31/2022 no overnight events. Patient awake and alert minimally verbal. Answers questions follows commands 08/01/2022: No overnight events . Patient more awake and verbal today. Denies any new complaints. No sees in hospital. 08/02/2022: No overnight events. More positive today. She is alert and awake. She is a bit confused. Stenoses in the hospital. 08/03/2022: Received lorazepam and Librium last night. ciwa score high. friend at bedside; feeding her 08/04/2022: CIWA score has been very high. Discussed with nursing staff. She is alert and somewhat oriented conversive notes shaky. No hallucination reported or noted 08/05/2022: Was Agitated last night. Confused morning. trying to work with the therapy this am. Review of Systems Review of Systems: All systems reviewed & are unremarkable except as noted in HPI and below Exam Narrative: GENERAL: Cachectic female in no acute distress confused HEAD: Normocephalic, atraumatic. EYES: PERRLA and EOMI. ENT: Nares clear, no rhinorrhea or epistaxis.? Mucous membranes dry. NECK: Supple. CHEST: Clear to auscultation.? No respiratory distress. HEART: Regular rate and rhythm ABDOMEN: Soft, nontender, nondistended EXTREMITIES: Normal range of motion.? No edema. SKIN: Warm, dry, no rash. NEURO: No focal deficits.? Alert and oriented x2. fol
[2022-08-05 17:15] LABS: Glucose Point of Care 97 mg/dl (65-105)
[2022-08-05 21:46] LABS: Glucose Point of Care 90 mg/dl (65-105)
[2022-08-06] MEDS: HALOPERIDOL LACTATE 5 MG/ML VIAL 2 MG IV PUSH ×3 (01:10→22:08)
[2022-08-06] MEDS: chlordiazePOXIDE (*CRX) 10 MG CAPSULE PO ×3 (01:10→21:11)
[2022-08-06] MEDS: LORazepam INJ (*CRX) 2 MG/ML VIAL 0.5 MG IV PUSH ×2 (01:48→20:24)
[2022-08-06 03:38] VITALS: PULSE 84
--- NOTE | 2022-08-06 06:51 | PC.NURSE ---
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 Multiple attempts to get out of bed, staff in rrom when bed alarm goes off at least x5 an hour. Medication does little to nothing to calm pt. Sitter was with pt in beginning of shift but left at 2300. SL RFA patent, wrapped so pt wont pull out room air lungs diminished. incontinent frequently- foul smelling urine - diaper No BM this shift. Plan for SNIF
[2022-08-06 08:00] VITALS: PULSE 76; RESP 20; O2SAT 99
[2022-08-06] MEDS: FOLIC ACID 1 MG/0.2 ML INJ IV PUSH (08:44)
[2022-08-06] MEDS: ATORVASTATIN 20 MG TABLET PO (08:44)
[2022-08-06] MEDS: MULTIVIT/MIN/PREN/FOL AC/IRON TABLET 1 TAB PO (08:44)
[2022-08-06 12:00] VITALS: BP 108/50; BP 111/67; PULSE 71; PULSE 84; RESP 17; TEMP 36.2; O2SAT 100
--- NOTE | 2022-08-06 12:19 | PM.IMPN ---
Progress Note: A&P Assessment and Plan (1) Altered mental status: Code(s): R41.82 - Altered mental status, unspecified Status: Acute Assessment and Plan: Continue chlordiazepoxide and lorazepam p.r.n. dosing. Continue thiamine supplementation and CIWA protocol (2) Alcoholic intoxication: Code(s): F10.929 - Alcohol use, unspecified with intoxication, unspecified Status: Acute Assessment and Plan: Continue to monitor CIWA scores, watch for DTs P.r.n. Ativan added Routine Librium Folic acid and thiamin daily (3) Severe protein-calorie malnutrition: Code(s): E43 - Unspecified severe protein-calorie malnutrition Status: Acute Assessment and Plan: The patient is only 34 kg. Patient drinks 1-2 bottles of wine a day. add ensures to diet Plan PT OT to see needs SNF placement Subjective Date/time seen: 08/06/22 12:19 Patient drowsy and not arousable this morning. Per the sitter in the room she ate her breakfast this morning and after that she went back to sleep Review of Systems Review of Systems: ROS unobtainable: Yes unobtainable due to mental status Exam Narrative: GENERAL: Cachectic female HEAD: Normocephalic, atraumatic. EYES: PERRLA and EOMI. ENT: Nares clear, no rhinorrhea or epistaxis.? Mucous membranes dry. NECK: Supple. CHEST: Clear to auscultation.? No respiratory distress. HEART: Regular rate and rhythm ABDOMEN: Soft, nontender, nondistended EXTREMITIES:No edema. SKIN: Warm, dry, no rash. NEURO: Not assessed PSYCH: Not assessed Objective Data Vital Signs Vital Signs: Vital Signs - 24 hr 08/05/22 13:00 08/05/22 17:30 08/05/22 16:00 Temperature 97.0 F L 97.8 F Pulse Rate 93 89 Pulse Rate [Right Monitor] 64 Respiratory Rate 18 18 Blood Pressure 121/83 96/63 L 96/63 L Pulse Oximetry 100 99 Oxygen Delivery 08/05/22 19:58 08/05/22 20:00 08/05/22 23:49 Temperature 97.8 F Pulse Rate 112 H Pulse Rate [Right Monitor] 112 H 98 Respiratory Rate 20 Blood Pressure 108/50 L Pulse Oximetry Oxygen Delivery 08/05/22 23:54 08/06/22 03:38 08/06/22 08:00 Temperature Pulse Rate 76 76 Pulse Rate [Right Monitor] 84 Respiratory Rate 20 Blood Pressure Pulse Oximetry 99 Oxygen Delivery Room Air Intake/Output Intake/Output: Intake & Output 08/03/22 08/04/22 08/05/22 08/06/22 23:59 23:59 23:59 23:59 Intake Total 350 / 350 520 / 520 1070 / 1070 340 / 340 Output Total 800 / 800 0 / 0 Balance -450 / -450 520 / 520 1070 / 1070 340 / 340 Meds/Results Medications: Active Medications Generic Name Dose Route Start Last Admin Trade Name Freq PRN Reason Stop Dose Admin Atorvastatin Calcium 20 mg 07/29/22 09:00 08/06/22 08:44 Atorvastatin 20 Mg Tablet PO 20 mg DAILY CURTIS Administration Chlordiazepoxide HCl 10 mg 08/02/22 20:40 08/06/22 01:10 Chlordiazepoxide (*Crx) 10 Mg Capsule PO 10 mg Q6H PRN Administration Anxiety Chlordiazepoxide HCl 10 mg 08/03/22 14:00 08/06/22 07:01 Chlordiazepoxide (*Crx) 10 Mg Capsule PO 10 mg Q8HR CURTIS Administration Folic Acid 1 mg 07/29/22 09:00 08/06/22 08:44 Folic Acid 1 Mg/0.2 Ml Inj IV PUSH 1 mg QAM CURTIS Administration Glucose 15 gm 07/31/22 12:25 Glucose Oral Gel 15 Gm Of Glucse In 37.5 Gm Tube PO PRN PRN Hypoglycemia Haloperidol Lactate 2 mg 07/28/22 15:44 08/06/22 03:44 Haloperidol Lactate 5 Mg/Ml Vial IV PUSH 2 mg Q2H PRN Administration Delirium Lorazepam 0.5 mg 08/02/22 20:41 08/06/22 01:48 Lorazepam Inj (*Crx) 2 Mg/Ml Vial IV PUSH 0.5 mg Q6H PRN Administration Anxiety Ondansetron HCl 4 mg 07/28/22 15:44 08/03/22 20:20 Ondansetron Inj 4 Mg/2 Ml Vial IV PUSH 4 mg Q6H PRN Administration Nausea And Vomiting Vit/Calcium/Iron/Folic Ac 1 tab 07/29/22 09:00 08/06/22 08:44 Multivit/Min/Pren/Fol Ac/Iron Tablet PO 1 tab DAILY CURTIS
--- NOTE | 2022-08-06 14:19 | PCOTNOTE ---
Attempted to see patient this date, however patient sleeping soundly at this time. Sitter at bedside stated patient has been hallucinating and unable to follow directions this date. Did not disturb patient for this reason.
[2022-08-06 16:00] VITALS: BP 108/50; BP 114/65; PULSE 64; PULSE 84; RESP 18; TEMP 36.2; O2SAT 99
[2022-08-06 20:00] VITALS: BP 91/62; PULSE 79; PULSE 90; RESP 17; TEMP 36.2; O2SAT 100
[2022-08-07] VITALS: BP 87/59; PULSE 78; RESP 18; TEMP 36.3; O2SAT 99
[2022-08-07 00:28] LABS: Glucose Point of Care 105 mg/dl (65-105)
[2022-08-07 02:40] VITALS: BP 111/73
[2022-08-07 04:00] VITALS: BP 116/76; PULSE 70; PULSE 78; RESP 18; TEMP 36.2; O2SAT 100
[2022-08-07] MEDS: chlordiazePOXIDE (*CRX) 10 MG CAPSULE PO ×2 (05:48→12:22)
[2022-08-07 07:10] LABS: Glucose Point of Care 82 mg/dl (65-105)
[2022-08-07 08:00] VITALS: BP 107/72; PULSE 87; RESP 16; TEMP 36.3; O2SAT 100
[2022-08-07] MEDS: FOLIC ACID 1 MG/0.2 ML INJ IV PUSH (10:25)
[2022-08-07] MEDS: MULTIVIT/MIN/PREN/FOL AC/IRON TABLET 1 TAB PO (10:25)
[2022-08-07] MEDS: ATORVASTATIN 20 MG TABLET PO (10:26)
--- NOTE | 2022-08-07 11:02 | PM.IMPN ---
Progress Note: A&P Assessment and Plan (1) Altered mental status: Code(s): R41.82 - Altered mental status, unspecified Status: Acute Assessment and Plan: Continue chlordiazepoxide scheduled and lorazepam p.r.n. dosing. Continue thiamine supplementation and CIWA protocol. Patient is going very low on CIWA protocol. She does not have a sitter at this moment (2) Alcoholic intoxication: Code(s): F10.929 - Alcohol use, unspecified with intoxication, unspecified Status: Acute Assessment and Plan: Continue to monitor CIWA scores, watch for DTs P.r.n. Ativan added Routine Librium Folic acid and thiamin daily (3) Severe protein-calorie malnutrition: Code(s): E43 - Unspecified severe protein-calorie malnutrition Status: Acute Assessment and Plan: The patient is only 34 kg. Patient drinks 1-2 bottles of wine a day. add ensures to diet Plan PT OT to see. needs SNF placement Subjective Date/time seen: 08/07/22 11:02 Patient is confused. She states she wants to go home to take care of her cat Review of Systems Review of Systems: ROS unobtainable: Yes unobtainable due to mental status Exam Narrative: GENERAL: Cachectic female HEAD: Normocephalic, atraumatic. EYES: PERRLA and EOMI. ENT: Nares clear, no rhinorrhea or epistaxis.? Mucous membranes dry. NECK: Supple. CHEST: Clear to auscultation.? No respiratory distress. HEART: Regular rate and rhythm ABDOMEN: Soft, nontender, nondistended EXTREMITIES:No edema. SKIN: Warm, dry, no rash. NEURO: Not oriented to time place and person PSYCH: Confused Objective Data Vital Signs Vital Signs: Vital Signs - 24 hr 08/06/22 12:00 08/06/22 16:00 08/06/22 12:00 Temperature 97.2 F L Pulse Rate 71 Pulse Rate [Right Monitor] 84 84 Respiratory Rate 17 Blood Pressure 108/50 L 108/50 L 111/67 Pulse Oximetry 100 Oxygen Delivery 08/06/22 16:00 08/06/22 20:00 08/06/22 20:00 Temperature 97.1 F L 97.1 F L Pulse Rate 64 79 Pulse Rate [Right Monitor] 90 Respiratory Rate 18 17 Blood Pressure 114/65 91/62 L Pulse Oximetry 99 100 Oxygen Delivery 08/07/22 00:00 08/07/22 02:40 08/07/22 04:00 Temperature 97.4 F L 97.2 F L Pulse Rate 78 70 Pulse Rate [Right Monitor] Respiratory Rate 18 18 Blood Pressure 87/59 L 111/73 116/76 Pulse Oximetry 99 100 Oxygen Delivery 08/07/22 04:00 08/07/22 08:00 08/07/22 08:00 Temperature 97.3 F L Pulse Rate 87 Pulse Rate [Right Monitor] 78 Respiratory Rate 16 Blood Pressure 107/72 Pulse Oximetry 100 Oxygen Delivery Room Air Intake/Output Intake/Output: Intake & Output 08/04/22 08/05/22 08/06/22 08/07/22 23:59 23:59 23:59 23:59 Intake Total 520 / 520 1070 / 1070 415 / 415 50 / 50 Output Total 0 / 0 Balance 520 / 520 1070 / 1070 415 / 415 50 / 50 Meds/Results Medications: Active Medications Generic Name Dose Route Start Last Admin Trade Name Pending Sale To [facility] PRN Reason Stop Dose Admin Atorvastatin Calcium 20 mg 07/29/22 09:00 08/07/22 10:26 Atorvastatin 20 Mg Tablet PO 20 mg DAILY CURTIS Administration Chlordiazepoxide HCl 10 mg 08/07/22 12:00 Chlordiazepoxide (*Crx) 10 Mg Capsule PO Q6HR CURTIS Folic Acid 1 mg 07/29/22 09:00 08/07/22 10:25 Folic Acid 1 Mg/0.2 Ml Inj IV PUSH 1 mg QAM CURTIS Administration Glucose 15 gm 07/31/22 12:25 Glucose Oral Gel 15 Gm Of Glucse In 37.5 Gm Tube PO PRN PRN Hypoglycemia Haloperidol Lactate 2 mg 07/28/22 15:44 08/06/22 22:08 Haloperidol Lactate 5 Mg/Ml Vial IV PUSH 2 mg Q2H PRN Administration Delirium Lorazepam 0.5 mg 08/02/22 20:41 08/06/22 20:24 Lorazepam Inj (*Crx) 2 Mg/Ml Vial IV PUSH 0.5 mg Q6H PRN Administration Anxiety Ondansetron HCl 4 mg 07/28/22 15:44 08/03/22 20:20 Ondansetron Inj 4 Mg/2 Ml Vial IV PUSH 4 mg Q6H PRN Administration Nausea And Vomiting Vit/Calcium/Iron/Folic
[2022-08-07 11:31] LABS: Glucose Point of Care 96 mg/dl (65-105)
[2022-08-07 12:00] VITALS: BP 93/50; PULSE 66; RESP 14; TEMP 36.6; O2SAT 99
--- NOTE | 2022-08-07 12:09 | PM.DS ---
DS: Admitting Diagnosis Discharge Date 08/07/2022 Admitting Diagnosis Alcohol intoxication DS: Discharge Diagnosis Discharge Diagnosis (1) Alcoholic intoxication: Code(s): F10.929 - Alcohol use, unspecified with intoxication, unspecified Status: Acute (2) Alcohol dependence: Code(s): F10.20 - Alcohol dependence, uncomplicated Status: Acute (3) Altered mental status: Code(s): R41.82 - Altered mental status, unspecified Status: Acute DS: Summary Hospital Course Hospital Course: Patient was admitted after alcohol intoxication. Continue chlordiazepoxide scheduled and lorazepam p.r.n. dosing.? Continue thiamine supplementation and CIWA protocol.? Patient is going very low on CIWA protocol.? She does not have a sitter at this moment Continue folic acid and thiamin daily The patient is only 34 kg.? Patient drinks 1-2 bottles of wine a day.? add ensures to diet Patient is clinically stable. She is not in alcohol withdrawal. She is being discharged to rehab Time Spent with Patient Time attestation: Total time spent providing and/or coordinating discharge services: Exam Narrative: GENERAL: Cachectic female HEAD: Normocephalic, atraumatic. EYES: PERRLA and EOMI. ENT: Nares clear, no rhinorrhea or epistaxis.? Mucous membranes dry. NECK: Supple. CHEST: Clear to auscultation.? No respiratory distress. HEART: Regular rate and rhythm ABDOMEN: Soft, nontender, nondistended EXTREMITIES:No edema. SKIN: Warm, dry, no rash. NEURO: Not oriented to time place and person PSYCH: Confused DS: Data Data Completed and Pending Labs on day of discharge: Labs from last 24 hours 08/07/22 08/07/22 08/07/22 11:19 07:05 00:12 POC Capillary Glucose 96 82 105 Discharge Plan Discharge Consulting providers: Barron Leahy Discharging Clinician: Redd Lynn Anticipated Discharge Date/Time: 08/07/22 12:06 Patient Disposition: SNF Activity: may shower Diet: regular Patient Instructions: Dehydration (DC), Alcohol Intoxication (DC) Stand Alone Forms: General Discharge Information Follow-up/Referrals: Enrrique,Yessi Gomez MD [Primary Care Provider] - Discharge Medications: New chlordiazepoxide HCl 10 mg Capsule 10 mg PO Q6HR PRN (Reason: agitation) Qty: 30 0RF Continued atorvastatin 20 mg tablet 20 mg PO DAILY metoprolol tartrate 25 mg tablet 12.5 mg PO DAILY prenat.vits,brandy,[id number]-[id number] Tablet 1 tablet PO DAILY Qty: 90 0RF thiamine HCl (vitamin B1) 100 mg tablet 100 mg PO DAILY Qty: 30 0RF folic acid 1 mg tablet 1 mg PO DAILY Qty: 30 0RF Date of admission: 07/31/22 14:02 Primary Care Provider: Enrrique,Yessi Gomez Admitting Provider: Alec Shanks Attending physician on admission: Redd Lynn Condition: Improved
[2022-08-07 12:56] LABS: EDCOVIDSCREEN Negative (Negative)
[2022-08-07 16:00] VITALS: BP 111/67; PULSE 88; RESP 14; TEMP 36.4; O2SAT 100
== END 2022-08-07 17:30 | DRG 896 ==
LOC: ANHED 07-28 09:51 → ANH3MEDSUR 07-28 10:49
PROVIDERS: Emergency Medicine; Family Medicine; Internal Medicine; Nurse Practitioner; Admitting Provider Internal Medicine; Emergency Provider Emergency Medicine; PCP Family Medicine; Visit Provider Hospitalist
DX: F10.229 Alcohol dependence with intoxication, unspecified (principal); E43 Unspecified severe protein-calorie malnutrition; Z68.1 Body mass index [BMI] 19.9 or less, adult; R41.82 Altered mental status, unspecified; I25.10 Atherosclerotic heart disease of native coronary artery without angina pectoris; Z20.822 Contact with and (suspected) exposure to COVID-19; Y90.8 Blood alcohol level of 240 mg/100 ml or more
CPT/HCPCS: 36415; 70450; 80048; 80053; 80307; 81003; 82140; 82948; 83605; 83690; 83735; 84443; 85025; 85027; 87426; 96361; 96365; 96372; 96375; 96376; 97163; 97166; 97530; 97535; 99285; A9270; C9803; G0378; J1630; J2060; J2405; J3411; J3475; J7120; J7121